=== PATIENT | female | born 1985 | race Caucasian/White ===

== ENCOUNTER 2018-09-25 14:05 | Inpatient (IN) | payer BC ==
[2018-09-25] MEDS ORDERED: Methylergonovine 0.2 MG/1 ML Amp IM PRN (14:53)
[2018-09-25] MEDS ORDERED: Butorphanol 1 MG/ML SDV IVPUSH PRN (14:53)
[2018-09-25] MEDS ORDERED: Sodium Chloride 0.9% 10 ML Syringe FLUSH PRN (14:53)
[2018-09-25] MEDS ORDERED: Lidocaine 1% 50 ML MDV INJECT PRN (14:53)
[2018-09-25] MEDS ORDERED: Carboprost Tromethamine 250 MCG/1 ML Amp IM PRN (14:53)
[2018-09-25] MEDS ORDERED: Nalbuphine 10 MG/1 ML Vial IVPUSH PRN (14:53)
[2018-09-25] MEDS ORDERED: Tranexamic Acid 1,000 MG in Sodium Chloride 0.9% 100 ML IV PRN (14:53)
[2018-09-25] MEDS ORDERED: Water For Irrigation,Sterile 1,000 ML Container IRR PRN (14:53)
[2018-09-25] MEDS ORDERED: Sodium Chloride 0.9% 2.5 ML Syringe FLUSH PRN (14:53)
[2018-09-25] MEDS ORDERED: Misoprostol 200 MCG Tab PO PRN (14:53)
[2018-09-25] MEDS ORDERED: Oxytocin/0.9 % Sodium Chloride 30 UNIT/500 ML BAG IV SCH (15:00)
[2018-09-25] MEDS ORDERED: Labetalol 100 MG Tab PO ONE (15:02)
[2018-09-25 16:19] LABS: CHLORIDE,CL 103 mmol/L (98-107); SODIUM,NA 135 mmol/L (136-145)
[2018-09-25] MEDS ORDERED: Labetalol 100 MG/20 ML MDV IVPUSH ONE ×2 (16:32→17:18)
[2018-09-25] MEDS: Lactated Ringers 1,000 ML IV SCH ×4 (16:38→22:24)
[2018-09-25] MEDS ORDERED: Lidocaine HCl/EPINEPHrine 5 ML IJ ONE (17:50)
--- NOTE | 2018-09-25 18:50 | PCM.PREANE ---
Preanesthetic Assessment - Procedure Proposed Procedure: for continuous labor epidural insertion - Anesthesia/Transfusion/Family Hx Anesthesia History: Prior Anesthesia Without Reaction (had surgery on her teeth in office. No history of GA.) Family History of Anesthesia Reaction: No Transfusion History: No Prior Transfusion(s) - Review of Systems General: No Symptoms (38+ weeks, in labor, . PPO=[id number]) Pulmonary: No Symptoms (history of asthma. Last asthma 'attack" was over 6 months ago, treated with inhaler. No recurrences. No futher inhaler use.) Cardiovascular: Other (hypertension with necessitating Rx Labetolol and baby asa daily. No signs or symptoms of abnormal bleeding or bruising.) Gastrointestinal: No Symptoms (GERD with ) Neurological: No Symptoms Other: Reports: None (active labor, 4-5 cm dilated.) - Physical Assessment NPO Status Date: 09/25/18 NPO Status Time: 13:00 (food) Pulse: 81 (eye=[id number]) O2 Sat by Pulse Oximetry: 96 Respiratory Rate: 24 (labor contractions) Blood Pressure: 161/118 Vital Signs: Last Vital Signs Temp Pulse 81 09/25/18 15:18 Resp BP 161/118 H 09/25/18 15:18 Pulse Ox Height: 1.6 m Weight: 76.204 kg ASA Class: 3E (hypertension (not yet diagnosed with pre eclampsia), requiring Labetolol for management.) Mental Status: Alert & Oriented x3 Airway Class: Mallampati = 3 ( says she snores a little, non-CORRIE) Dentition: Reports: Normal Dentition Thyro-Mental Finger Breadths: 2 Mouth Opening Finger Breadths: 3 ROM/Head Extension: Full Lungs: Clear to Auscultation, Normal Respiratory Effort Cardiovascular: Regular Rate, Regular Rhythm - Lab Values: Laboratory Last Values WBC 10.84 K/uL (4.0-11.0) 09/25/18 15:15 RBC 4.39 M/uL (4.30-5.90) 09/25/18 15:15 Hgb 12.5 g/dL (12.0-16.0) 09/25/18 15:15 Hct 36.4 % (36.0-46.0) 09/25/18 15:15 MCV 82.9 fL (80.0-98.0) 09/25/18 15:15 MCH 28.5 pg (27.0-32.0) 09/25/18 15:15 MCHC 34.3 g/dL (31.0-37.0) 09/25/18 15:15 RDW Std Deviation 41.2 fl (28.0-62.0) 09/25/18 15:15 RDW Coeff of Deb 14 % (11.0-15.0) 09/25/18 15:15 Plt Count 240 K/uL (150-400) 09/25/18 15:15 MPV 11.80 fL (7.40-12.00) 09/25/18 15:15 Nucleated RBC % 0.0 /100WBC 09/25/18 15:15 Nucleated RBCs # 0 K/uL 09/25/18 15:15 Sodium 135 mmol/L (136-145) L 09/25/18 15:15 Potassium 4.4 mmol/L (3.5-5.1) 09/25/18 15:15 Chloride 103 mmol/L (98-107) 09/25/18 15:15 Carbon Dioxide 21.2 mmol/L (21.0-32.0) 09/25/18 15:15 BUN 12 mg/dL (7.0-18.0) 09/25/18 15:15 Creatinine 0.8 mg/dL (0.6-1.0) 09/25/18 15:15 Est Cr Clr Drug Dosing 83.51 mL/min 09/25/18 15:15 Estimated GFR (MDRD) > 60.0 ml/min 09/25/18 15:15 Glucose 87 mg/dL (74-106) 09/25/18 15:15 Uric Acid 4.7 mg/dL (2.6-7.2) 09/25/18 15:15 Calcium 9.5 mg/dL (8.5-10.1) 09/25/18 15:15 Total Bilirubin 0.1 mg/dL (0.2-1.0) L 09/25/18 15:15 AST 16 IU/L (15-37) 09/25/18 15:15 ALT 20 IU/L (14-63) 09/25/18 15:15 Alkaline Phosphatase 152 U/L (46-116) H 09/25/18 15:15 Lactate Dehydrogenase 210 U/L (81-234) 09/25/18 15:15 Total Protein 7.0 g/dL (6.4-8.2) 09/25/18 15:15 Albumin 2.6 g/dL (3.4-5.0) L 09/25/18 15:15 Globulin 4.4 g/dL (2.6-4.0) H 09/25/18 15:15 Albumin/Globulin Ratio 0.6 (0.9-1.6) L 09/25/18 15:15 Urine Color YELLOW 09/25/18 14:50 Urine Appearance CLEAR 09/25/18 14:50 Urine pH 6.0 (5.0-8.0) 09/25/18 14:50 Ur Specific [place] 1.020 (1.001-1.035) 09/25/18 14:50 Urine Protein NEGATIVE mg/dL (NEGATIVE) 09/25/18 14:50 Urine Glucose (UA) NEGATIVE mg/dL (NEGATIVE) 09/25/18 14:50 Urine Ketones NEGATIVE mg/dL (NEGATIVE) 09/25/18 14:50 Urine Occult Blood NEGATIVE (NEGATIVE) 09/25/18 14:50 Urine Nitrite NEGATIVE (NEGATIVE) 09/25/18 14:50 Urine Bilirubin NEGATIVE (NEGATIVE) 09/25/18 14:50 Urine Urobilinogen 0.2 EU/dL (<2.0) 09/25/18 14:50 Ur Leukocyte Esterase NEGATIVE (NEGATIVE) 09/25/18 14:50 Blood Type A NEGATIVE 09/25/18 15:15 Antibody Screen NEGATIVE 09/25/18 15:15 - Allergies Allergies/Adverse Reactions: Allergies Allergy/AdvReac Type Severity Reaction Status Date / Time Penicillins Allergy Rash Verified 09/25/18 14:53 - Blood Blood Available: No Product(s) Available: None - Anesthesia Plan Pre-Op Medication Ordered: None - Acknowledgements Anesthesia Type Planned: Epidural (Plan: continuous labor epidural discussed with patient and . All questions answered. consent signed.) Pt an Appropriate Candidate for the Planned Anesthesia: Yes Alternatives and Risks of Anesthesia Discussed w Pt/Guardian: Yes Pt/Guardian Understands and Agrees with Anesthesia Plan: Yes PreAnesthesia Questionnaire COMMERCIAL SALES CONSULTANT History: Reports: - Past Surgical History HEENT Surgical History: Reports: Other (See Below) Other HEENT Surgeries/Procedures: [place] teeth extraction - SUBSTANCE USE Smoking Status *Q: Never Smoker Tobacco Use Within Last Twelve Months: No Recreational Drug Use History: No - CURRENT (IN HOUSE) MEDS Current Meds: Current Medications Butorphanol Tartrate (Stadol) 1 mg IVPUSH ASDIRECTED PRN PRN Reason: Pain Carboprost Tromethamine (Hemabate Ds) 250 mcg IM ASDIRECTED PRN PRN Reason: Post Hemorrhage Lactated Ringer's (Ringers, Lactated) 1,000 mls @ 150 mls/hr IV ASDIRECTED SOCRATES Last Admin: 09/25/18 17:56 Dose: 999 mls/hr Oxytocin/Sodium Chloride (Oxytocin 30 Unit/500 Ml-Ns) 30 unit in 500 mls @ 999 mls/hr IV TITRATE SOCRATES Tranexamic Acid 1,000 mg/ (Sodium Chloride) 110 mls @ 660 mls/hr IV ONETIME PRN PRN Reason: Bleeding Lidocaine HCl (Xylocaine 1%) 50 ml INJECT ONETIME PRN PRN Reason: Laceration repair Methylergonovine Maleate (Methergine) 0.2 mg IM ASDIRECTED PRN PRN Reason: Post Hemorrhage Misoprostol (Cytotec) 200 mcg PO ONETIME PRN PRN Reason: Post Hemorrhage Nalbuphine HCl (Nubain) 10 mg IVPUSH ASDIRECTED PRN PRN Reason: Pain (severe 7-10) Sodium Chloride (Saline Flush) 10 ml FLUSH ASDIRECTED PRN PRN Reason: Keep Vein Open Sodium Chloride (Saline Flush) 2.5 ml FLUSH ASDIRECTED PRN PRN Reason: Keep Vein Open Sterile Water (Sterile Water For Irrigation) 1,000 ml IRR ASDIRECTED PRN PRN Reason: delivery Discontinued Medications Fentanyl/Bupivacaine HCl (Rnjjpxbf-Ucyul-Fr 2 Mcg/Ml-0.125%) Confirm Administered Dose 100 mls @ as directed .ROUTE .STK-MED ONE Stop: 09/25/18 17:52 Labetalol HCl (Normodyne) 200 mg PO ONETIME ONE Stop: 09/25/18 15:03 Last Admin: 09/25/18 15:18 Dose: 200 mg Labetalol HCl (Normodyne) 10 mg IVPUSH ONETIME ONE; Protocol Stop: 09/25/18 16:33 Last Admin: 09/25/18 16:50 Dose: 10 mg Labetalol HCl (Normodyne) 10 mg IVPUSH ONETIME ONE; Protocol Stop: 09/25/18 17:19 Last Admin: 09/25/18 17:19 Dose: 10 mg Lidocaine/Epinephrine (Lidocaine 1.5%-Epi 1:200,000) Confirm Administered Dose 5 ml IJ .STK-MED ONE Stop: 09/25/18 17:51
--- NOTE | 2018-09-25 22:56 | PCM.SN ---
- Free Text/Narrative Note: called in by Oil Spreader Operator to stand by for vacuum-assisted vaginal delivery by Dr. Shepherd on this patient. I previously inserted a continuous labor epidural on this patient earlier this evening. Baby delivered uneventfully. My time for standby: [id number] hrs. Yonathan Martinez MD Anesthesiologist irrigation district manager
[2018-09-25] MEDS ORDERED: Acetaminophen 500 MG Tab PO PRN ×2 (23:10)
[2018-09-25] MEDS ORDERED: oxyCODONE 5 MG Tab PO PRN (23:10)
[2018-09-25] MEDS ORDERED: Ondansetron 4 MG/2 ML SDV IVPUSH PRN (23:10)
[2018-09-25] MEDS ORDERED: Ibuprofen 400 MG Tab PO PRN (23:10)
[2018-09-25] MEDS ORDERED: Docusate Sodium 100 MG Cap PO PRN (23:10)
[2018-09-25] MEDS ORDERED: Witch Hazel Medicated Pads 40/Jar TOP PRN (23:10)
[2018-09-25] MEDS ORDERED: Bisacodyl 10 MG Supp RECTAL PRN (23:10)
[2018-09-25] MEDS ORDERED: Benzocaine/Menthol 20%-0.5% Spray 78 GM Cannister TOP PRN (23:10)
[2018-09-25] MEDS ORDERED: Lanolin 100% Cream 7 GM Tube TOP PRN (23:10)
--- NOTE | 2018-09-25 23:19 | PCM.DEL ---
L & D Note - General Info Date of Service: 09/25/18 - Delivery Note Labor: Spontaneous Delivery Outcome: Livebirth Delivery Method: Spontaneous Vaginal Delivery-Single Nuchal Cord: None Anesthesia Type: Epidural Amniotic Fluid Description: Meconium Stained Laceration: 2nd Degree Suture type: Vicryl Suture size: 3-0 Placenta: Intact, Spontaneous Cord: 3 Vessels Estimated Blood Loss: 300 Provider: Addis Shepherd Score 1 min: 8 Score 5 min: 9 Vacuum Extractor Progress Note - Alternative Labor Strategies Considered Alternative Labor Strategies Considered:: Reports: Yes Strategies Considered:: Reports: Contraction Intensity Adequate, Position Changes Used to Facilitate Rotation & Descent, Empty Bladder, Rest Indications Considered:: Reports: Yes Indications:: Reports: Suspicion of Immediate or Potential Compromise - Patient Prepared Patient Prepared:: Reports: Yes Informed Consent:: Reports: Verbal Risks: Reports: Yes Risks Include:: Reports: Laceration, Shoulder Dystocia, Maternal Injury Anesthesia/Analgesia Adequate:: Reports: Yes - Probability of Success High Probability of Success:: Reports: Yes Weight Estimated:: Reports: AGA Patient Diabetic:: Reports: No Pelvis Adequate:: Reports: Yes Asynclitic:: Reports: Yes Station:: +2 - Application Time Maximum Application Time & Number of Pop-Offs Predetermined:: Reports: Yes Total Application Time (min): *max=20min: 5 Number of Times Cup Disengaged:: 0 Type of Vacuum Used:: Reports: Cup: Soft Vacuum Extraction: Successful - Exit Strategy Exit strategy available:: Reports: Yes and resuscitation teams readily available:: Reports: Yes - General Info Date of Service: 09/25/18 - Patient Data Vitals - Most Recent: Last Vital Signs Temp Pulse 81 09/25/18 18:51 Resp 24 H 09/25/18 18:51 BP 161/118 H 09/25/18 18:51 Pulse Ox 96 09/25/18 18:51 Weight - Most Recent: 76.204 kg Lab Results Last 24 Hours: Laboratory Results - last 24 hr 09/25/18 09/25/18 09/25/18 Range/Units 14:50 15:15 15:15 WBC 10.84 (4.0-11.0) K/uL RBC 4.39 (4.30-5.90) M/uL Hgb 12.5 (12.0-16.0) g/dL Hct 36.4 (36.0-46.0) % MCV 82.9 (80.0-98.0) fL MCH 28.5 (27.0-32.0) pg MCHC 34.3 (31.0-37.0) g/dL RDW Std Deviation 41.2 (28.0-62.0) fl RDW Coeff of Deb 14 (11.0-15.0) % Plt Count 240 (150-400) K/uL MPV 11.80 (7.40-12.00) fL Nucleated RBC % 0.0 /100WBC Nucleated RBCs # 0 K/uL Sodium (136-145) mmol/L Potassium (3.5-5.1) mmol/L Chloride (98-107) mmol/L Carbon Dioxide (21.0-32.0) mmol/L BUN (7.0-18.0) mg/dL Creatinine (0.6-1.0) mg/dL Est Cr Clr Drug Dosing mL/min Estimated GFR (MDRD) ml/min Glucose (74-106) mg/dL Uric Acid (2.6-7.2) mg/dL Calcium (8.5-10.1) mg/dL Total Bilirubin (0.2-1.0) mg/dL AST (15-37) IU/L ALT (14-63) IU/L Alkaline Phosphatase (46-116) U/L Lactate Dehydrogenase (81-234) U/L Total Protein (6.4-8.2) g/dL Albumin (3.4-5.0) g/dL Globulin (2.6-4.0) g/dL Albumin/Globulin Ratio (0.9-1.6) Urine Color YELLOW Urine Appearance CLEAR Urine pH 6.0 (5.0-8.0) Ur Specific [place] 1.020 (1.001-1.035) Urine Protein NEGATIVE (NEGATIVE) mg/dL Urine Glucose (UA) NEGATIVE (NEGATIVE) mg/dL Urine Ketones NEGATIVE (NEGATIVE) mg/dL Urine Occult Blood NEGATIVE (NEGATIVE) Urine Nitrite NEGATIVE (NEGATIVE) Urine Bilirubin NEGATIVE (NEGATIVE) Urine Urobilinogen 0.2 (<2.0) EU/dL Ur Leukocyte Esterase NEGATIVE (NEGATIVE) Blood Type A NEGATIVE Antibody Screen NEGATIVE 09/25/18 09/25/18 Range/Units 15:15 15:15 WBC (4.0-11.0) K/uL RBC (4.30-5.90) M/uL Hgb (12.0-16.0) g/dL Hct (36.0-46.0) % MCV (80.0-98.0) fL MCH (27.0-32.0) pg MCHC (31.0-37.0) g/dL RDW Std Deviation (28.0-62.0) fl RDW Coeff of Deb (11.0-15.0) % Plt Count (150-400) K/uL MPV (7.40-12.00) fL Nucleated RBC % /100WBC Nucleated RBCs # K/uL Sodium 135 L (136-145) mmol/L Potassium 4.4 (3.5-5.1) mmol/L Chloride 103 (98-107) mmol/L Carbon Dioxide 21.2 (21.0-32.0) mmol/L BUN 12 (7.0-18.0) mg/dL Creatinine 0.8 (0.6-1.0) mg/dL Est Cr Clr Drug Dosing 83.51 mL/min Estimated GFR (MDRD) > 60.0 ml/min Glucose 87 (74-106) mg/dL Uric Acid 4.7 (2.6-7.2) mg/dL Calcium 9.5 (8.5-10.1) mg/dL Total Bilirubin 0.1 L (0.2-1.0) mg/dL AST 16 (15-37) IU/L ALT 20 (14-63) IU/L Alkaline Phosphatase 152 H (46-116) U/L Lactate Dehydrogenase 210 (81-234) U/L Total Protein 7.0 (6.4-8.2) g/dL Albumin 2.6 L (3.4-5.0) g/dL Globulin 4.4 H (2.6-4.0) g/dL Albumin/Globulin Ratio 0.6 L (0.9-1.6) Urine Color Urine Appearance Urine pH (5.0-8.0) Ur Specific [place] (1.001-1.035) Urine Protein (NEGATIVE) mg/dL Urine Glucose (UA) (NEGATIVE) mg/dL Urine Ketones (NEGATIVE) mg/dL Urine Occult Blood (NEGATIVE) Urine Nitrite (NEGATIVE) Urine Bilirubin (NEGATIVE) Urine Urobilinogen (<2.0) EU/dL Ur Leukocyte Esterase (NEGATIVE) Blood Type Antibody Screen Med Orders - Current: Current Medications Butorphanol Tartrate (Stadol) 1 mg IVPUSH ASDIRECTED PRN PRN Reason: Pain Lactated Ringer's (Ringers, Lactated) 1,000 mls @ 150 mls/hr IV ASDIRECTED SOCRATES Last Admin: 09/25/18 18:45 Dose: 150 mls/hr Oxytocin/Sodium Chloride (Oxytocin 30 Unit/500 Ml-Ns) 30 unit in 500 mls @ 999 mls/hr IV TITRATE SOCRATES Tranexamic Acid 1,000 mg/ (Sodium Chloride) 110 mls @ 660 mls/hr IV ONETIME PRN PRN Reason: Bleeding Lidocaine HCl (Xylocaine 1%) 50 ml INJECT ONETIME PRN PRN Reason: Laceration repair Methylergonovine Maleate (Methergine) 0.2 mg IM ASDIRECTED PRN PRN Reason: Post Hemorrhage Nalbuphine HCl (Nubain) 10 mg IVPUSH ASDIRECTED PRN PRN Reason: Pain (severe 7-10) Sodium Chloride (Saline Flush) 10 ml FLUSH ASDIRECTED PRN PRN Reason: Keep Vein Open Sodium Chloride (Saline Flush) 2.5 ml FLUSH ASDIRECTED PRN PRN Reason: Keep Vein Open Sterile Water (Sterile Water For Irrigation) 1,000 ml IRR ASDIRECTED PRN PRN Reason: delivery Discontinued Medications Carboprost Tromethamine (Hemabate Ds) 250 mcg IM ASDIRECTED PRN PRN Reason: Post Hemorrhage Fentanyl/Bupivacaine HCl (Buebbcpr-Yyfhe-Qk 2 Mcg/Ml-0.125%) Confirm Administered Dose 100 mls @ as directed .ROUTE .STK-MED ONE Stop: 09/25/18 17:52 Labetalol HCl (Normodyne) 200 mg PO ONETIME ONE Stop: 09/25/18 15:03 Last Admin: 09/25/18 15:18 Dose: 200 mg Labetalol HCl (Normodyne) 10 mg IVPUSH ONETIME ONE; Protocol Stop: 09/25/18 16:33 Last Admin: 09/25/18 16:50 Dose: 10 mg Labetalol HCl (Normodyne) 10 mg IVPUSH ONETIME ONE; Protocol Stop: 09/25/18 17:19 Last Admin: 09/25/18 17:19 Dose: 10 mg Lidocaine/Epinephrine (Lidocaine 1.5%-Epi 1:200,000) Confirm Administered Dose 5 ml IJ .STK-MED ONE Stop: 09/25/18 17:51 Misoprostol (Cytotec) 200 mcg PO ONETIME PRN PRN Reason: Post Hemorrhage - Problem List & Annotations (1) Vaginal delivery SNOMED Code(s): 145954179 Code(s): O80 - ENCOUNTER FOR FULL-TERM UNCOMPLICATED DELIVERY Status: Acute Current Visit: Yes - Problem List Review Problem List Initiated/Reviewed/Updated: Yes - My Orders Last 24 Hours: My Active Orders 09/25/18 23:10 Acetaminophen [Tylenol Extra Strength] 1,000 mg PO Q4H PRN Acetaminophen [Tylenol Extra Strength] 500 mg PO Q4H PRN Benzocaine/Menthol [Dermoplast Pain Relief 20%-0.5% [place]] 78 gm TOP ASDIRECTED PRN Bisacodyl [Dulcolax] 10 mg RECTAL ONETIME PRN Docusate Sodium [Colace] 100 mg PO BID PRN Ibuprofen [Motrin] 400 mg PO Q4H PRN Ibuprofen [Motrin] 800 mg PO Q6H PRN Lanolin [Lansinoh HPA] See Dose Instructions TOP ASDIRECTED PRN Ondansetron [Zofran] 4 mg IVPUSH Q6H PRN [place] [Tucks] 1 pad TOP ASDIRECTED PRN oxyCODONE 5 mg PO Q2H PRN 09/25/18 23:11 Patient Status [ADT] Routine May Shower [RC] ASDIRECTED Up ad Christine [RC] ASDIRECTED Vital Signs [RC] PER UNIT ROUTINE Assess Lochia [WOMSER] Per Unit Routine Assess Uterine Involution [WOMSER] Per Unit Routine Peripheral IV Discontinue [OM.PC] Routine 09/25/18 23:12 BLOOD GAS ARTERIAL UMBILICAL [BG] Routine BLOOD GAS VENOUS UMBILICAL [BG] Routine Ice Therapy [OM.PC] Per Unit Routine Perineal Care [OM.PC] Per Unit Routine Sitz Bath [OM.PC] Per Unit Routine 09/26/18 05:11 HEMOGLOBIN/HEMATOCRIT,HH [HEME] Timed
[2018-09-26] MEDS: Ibuprofen 800 MG Tab PO PRN ×2 (02:57→16:15)
--- NOTE | 2018-09-26 04:21 | OR ---
SURGEON: Addis Shepherd M.D. DATE OF PROCEDURE: 09/25/2018 PREOPERATIVE DIAGNOSES: 1. A 38 and 2 week intrauterine . 2. Labor. 3. Gestational hypertension. POSTOPERATIVE DIAGNOSES: 1. A 38 and 2 week intrauterine . 2. Labor. 3. Gestational hypertension. 4. bradycardia. PROCEDURE: 1. Vacuum assisted vaginal delivery. 2. Second-degree midline laceration repaired. ANESTHESIA: Epidural. ESTIMATED BLOOD LOSS: 350 mL. COMPLICATIONS: None. FINDINGS: Viable male with scores 8 at one minute, 9 at five minutes. Weight of 7 pounds 4 ounces. Spontaneous delivery, intact placenta, 3-vessel cord. Meconium-stained fluid noted. DISPOSITION: The patient in nursery, mom in LDRP in stable condition. PROCEDURE IN DETAIL: Stephy is a 33-year-old primigravida at 38 and 2 weeks gestational age, who presented to Labor and Delivery today with contractions since 11:00 a.m. She was found to be 3 cm and progressed to 4 cm dilatation. Blood pressures are quite elevated with diastolics in the 100s. The patient was admitted. Routine labs were drawn. There was no proteinuria. PIH labs were otherwise negative. heart tones in the 140s with variability. Amniotomy was performed. Clear fluid was returned. The patient became increasingly uncomfortable and progressed to 5 cm relatively quickly. Underwent regional anesthesia in the form of epidural, became more comfortable and blood pressures stabilized nicely with this to the 120s to 130s over 70s to 80s. Initially after amniotomy and epidural, there were some variable decelerations noted. However, with positional change, oxygen supplementation, and IV fluid bolus, heart tones returned to baseline of 140s with variability. The patient began to progress more quickly thereafter. Shortly after 8:00 p.m., was found to be 9 cm and within an hour progressed to complete, began initial pushing efforts, was not pushing very effectively, and within 15 minutes of pushing, there were recurrent decelerations noted. Therefore, I was called. Upon my presentation, there were deep variables noted, they were now recovered as the patient was resting on her side at baseline within 140s with variability. With recovery, we allowed pushing efforts to again ensue. At that time, the patient was effectively pushing and was able to push to a +2 station. I had a discussion with the patient and her that if the deceleration began to recur again and become much deeper, option of proceeding with an operative vaginal delivery was discussed. They prefer this over delivery if possible. The risks of vacuum-assisted vaginal delivery was discussed with them including the risks of maternal vaginal trauma, cephalhematoma, or even intracranial bleeding. They voiced their understanding and would like to proceed in this manner if it is indicated. Therefore, the patient was continued with pushing efforts and once again with pushing efforts began having decelerations. At this time, the heart tones dropped to the 50s. The patient was repositioned to her side. She was then set up for delivery in a modified dorsal lithotomy position and was prepped and draped in the usual aseptic manner. position was once again palpated and felt to be MARK at a +2 station. Once again, discussed risks of vacuum with them and proceeding with a vacuum-assisted vaginal delivery. The patient and her would like to proceed with this manner. The OR crew was called to be in-house and on standby in case the vacuum delivery was not easily achievable. The vacuum was now gently placed after palpating the sagittal suture. With the next contraction, insufflated the vacuum to the green zone and assisted with this contraction. The vacuum was then released between contraction. With the next 3 contractions, once again the vacuum was insufflated to the green zone, at that time was able to deliver to a +4 station. The vacuum was removed and the infant's head was delivered. The shoulders did not easily deliver at this point, therefore I was able to gently reach into the axilla on either side and maneuver the shoulders with the posterior shoulder delivered followed by the anterior shoulder and remainder of the body. The infant's oropharynx and nares were bulb suctioned. Cord was clamped x2 and infant was handed off to attending nursing staff. Cord arterial, cord venous, and cord blood sampling was obtained. There was some meconium-stained fluid noted at this time. Light suprapubic pressure was applied while the placenta was delivered spontaneously intact. Vigorous fundal uterine massage was then applied while 30 units Pitocin was delivered in 500 mL of IV fluid. Upon inspection of cervix, vaginal sidewalls, and perineum, there was a deep second-degree midline laceration noted. This was repaired using 3-0 Vicryl first. The deeper layer was repaired with 3 [id number] sutures using 3-0 Vicryl, followed by repair of remainder of the laceration in the usual fashion with 3-0 Vicryl. There were 2 small periurethral lacerations noted on either side. These were repaired using 3-0 Vicryl. Hemostasis appeared evident. Sponge count and needle count were correct. The uterus remained firm. The patient remained in LDRP. Blood pressures remain normalized in the 120s over 70s. Infant is with his mother at this time with attending nurses at her side. BRUNA / FARIDEH /[id number]
--- NOTE | 2018-09-26 08:18 | PCM.PNPP ---
<Melissa Zabala - Last Filed: 09/26/18 08:12> - General Info Date of Service: 09/26/18 Functional Status: Reports: Pain Controlled, Tolerating Diet, Ambulating, Urinating - Review of Systems General: Denies: Fever, Weakness, Fatigue Pulmonary: Denies: Shortness of Breath, Pleuritic Chest Pain, Cough Cardiovascular: Denies: Chest Pain, Palpitations, Dyspnea on Exertion Gastrointestinal: Denies: Abdominal Pain Genitourinary: Denies: Dysuria - General Info Date of Service: 09/26/18 - Patient Data Vital Signs - Most Recent: Last Vital Signs Temp 36.8 C 09/26/18 07:10 Pulse 86 09/26/18 07:10 Resp 16 09/26/18 07:10 BP 130/81 09/26/18 07:10 Pulse Ox 96 09/26/18 07:10 Weight - Most Recent: 168 lb Lab Results - Last 24 Hours: Laboratory Results - last 24 hr 09/25/18 09/25/18 09/25/18 Range/Units 14:50 15:15 15:15 WBC 10.84 (4.0-11.0) K/uL RBC 4.39 (4.30-5.90) M/uL Hgb 12.5 (12.0-16.0) g/dL Hct 36.4 (36.0-46.0) % MCV 82.9 (80.0-98.0) fL MCH 28.5 (27.0-32.0) pg MCHC 34.3 (31.0-37.0) g/dL RDW Std Deviation 41.2 (28.0-62.0) fl RDW Coeff of Deb 14 (11.0-15.0) % Plt Count 240 (150-400) K/uL MPV 11.80 (7.40-12.00) fL Nucleated RBC % 0.0 /100WBC Nucleated RBCs # 0 K/uL Cord ABG pH (7.18-7.38) Cord ABG Base Excess (-10--2) Cord VBG pH (7.25-7.45) Cord VBG Base Excess (-10--2) Sodium (136-145) mmol/L Potassium (3.5-5.1) mmol/L Chloride (98-107) mmol/L Carbon Dioxide (21.0-32.0) mmol/L BUN (7.0-18.0) mg/dL Creatinine (0.6-1.0) mg/dL Est Cr Clr Drug Dosing mL/min Estimated GFR (MDRD) ml/min Glucose (74-106) mg/dL Uric Acid (2.6-7.2) mg/dL Calcium (8.5-10.1) mg/dL Total Bilirubin (0.2-1.0) mg/dL AST (15-37) IU/L ALT (14-63) IU/L Alkaline Phosphatase (46-116) U/L Lactate Dehydrogenase (81-234) U/L Total Protein (6.4-8.2) g/dL Albumin (3.4-5.0) g/dL Globulin (2.6-4.0) g/dL Albumin/Globulin Ratio (0.9-1.6) Urine Color YELLOW Urine Appearance CLEAR Urine pH 6.0 (5.0-8.0) Ur Specific Dowell 1.020 (1.001-1.035) Urine Protein NEGATIVE (NEGATIVE) mg/dL Urine Glucose (UA) NEGATIVE (NEGATIVE) mg/dL Urine Ketones NEGATIVE (NEGATIVE) mg/dL Urine Occult Blood NEGATIVE (NEGATIVE) Urine Nitrite NEGATIVE (NEGATIVE) Urine Bilirubin NEGATIVE (NEGATIVE) Urine Urobilinogen 0.2 (<2.0) EU/dL Ur Leukocyte Esterase NEGATIVE (NEGATIVE) Blood Type A NEGATIVE Antibody Screen NEGATIVE 09/25/18 09/25/18 09/25/18 Range/Units 15:15 15:15 22:41 WBC (4.0-11.0) K/uL RBC (4.30-5.90) M/uL Hgb (12.0-16.0) g/dL Hct (36.0-46.0) % MCV (80.0-98.0) fL MCH (27.0-32.0) pg MCHC (31.0-37.0) g/dL RDW Std Deviation (28.0-62.0) fl RDW Coeff of Deb (11.0-15.0) % Plt Count (150-400) K/uL MPV (7.40-12.00) fL Nucleated RBC % /100WBC Nucleated RBCs # K/uL Cord ABG pH 7.152 L (7.18-7.38) Cord ABG Base Excess -11 L (-10--2) Cord VBG pH 7.189 L (7.25-7.45) Cord VBG Base Excess -10 (-10--2) Sodium 135 L (136-145) mmol/L Potassium 4.4 (3.5-5.1) mmol/L Chloride 103 (98-107) mmol/L Carbon Dioxide 21.2 (21.0-32.0) mmol/L BUN 12 (7.0-18.0) mg/dL Creatinine 0.8 (0.6-1.0) mg/dL Est Cr Clr Drug Dosing 83.51 mL/min Estimated GFR (MDRD) > 60.0 ml/min Glucose 87 (74-106) mg/dL Uric Acid 4.7 (2.6-7.2) mg/dL Calcium 9.5 (8.5-10.1) mg/dL Total Bilirubin 0.1 L (0.2-1.0) mg/dL AST 16 (15-37) IU/L ALT 20 (14-63) IU/L Alkaline Phosphatase 152 H (46-116) U/L Lactate Dehydrogenase 210 (81-234) U/L Total Protein 7.0 (6.4-8.2) g/dL Albumin 2.6 L (3.4-5.0) g/dL Globulin 4.4 H (2.6-4.0) g/dL Albumin/Globulin Ratio 0.6 L (0.9-1.6) Urine Color Urine Appearance Urine pH (5.0-8.0) Ur Specific Dowell (1.001-1.035) Urine Protein (NEGATIVE) mg/dL Urine Glucose (UA) (NEGATIVE) mg/dL Urine Ketones (NEGATIVE) mg/dL Urine Occult Blood (NEGATIVE) Urine Nitrite (NEGATIVE) Urine Bilirubin (NEGATIVE) Urine Urobilinogen (<2.0) EU/dL Ur Leukocyte Esterase (NEGATIVE) Blood Type Antibody Screen 09/26/18 Range/Units 04:43 WBC (4.0-11.0) K/uL RBC (4.30-5.90) M/uL Hgb 11.0 L (12.0-16.0) g/dL Hct 32.0 L (36.0-46.0) % MCV (80.0-98.0) fL MCH (27.0-32.0) pg MCHC (31.0-37.0) g/dL RDW Std Deviation (28.0-62.0) fl RDW Coeff of Deb (11.0-15.0) % Plt Count (150-400) K/uL MPV (7.40-12.00) fL Nucleated RBC % /100WBC Nucleated RBCs # K/uL Cord ABG pH (7.18-7.38) Cord ABG Base Excess (-10--2) Cord VBG pH (7.25-7.45) Cord VBG Base Excess (-10--2) Sodium (136-145) mmol/L Potassium (3.5-5.1) mmol/L Chloride (98-107) mmol/L Carbon Dioxide (21.0-32.0) mmol/L BUN (7.0-18.0) mg/dL Creatinine (0.6-1.0) mg/dL Est Cr Clr Drug Dosing mL/min Estimated GFR (MDRD) ml/min Glucose (74-106) mg/dL Uric Acid (2.6-7.2) mg/dL Calcium (8.5-10.1) mg/dL Total Bilirubin (0.2-1.0) mg/dL AST (15-37) IU/L ALT (14-63) IU/L Alkaline Phosphatase (46-116) U/L Lactate Dehydrogenase (81-234) U/L Total Protein (6.4-8.2) g/dL Albumin (3.4-5.0) g/dL Globulin (2.6-4.0) g/dL Albumin/Globulin Ratio (0.9-1.6) Urine Color Urine Appearance Urine pH (5.0-8.0) Ur Specific [place]ell (1.001-1.035) Urine Protein (NEGATIVE) mg/dL Urine Glucose (UA) (NEGATIVE) mg/dL Urine Ketones (NEGATIVE) mg/dL Urine Occult Blood (NEGATIVE) Urine Nitrite (NEGATIVE) Urine Bilirubin (NEGATIVE) Urine Urobilinogen (<2.0) EU/dL Ur Leukocyte Esterase (NEGATIVE) Blood Type Antibody Screen Med Orders - Current: Current Medications Acetaminophen (Tylenol Extra Strength) 500 mg PO Q4H PRN PRN Reason: Pain Acetaminophen (Tylenol Extra Strength) 1,000 mg PO Q4H PRN PRN Reason: Pain Benzocaine/Menthol (Dermoplast Pain Relief 20%-0.5% Presto) 78 gm TOP ASDIRECTED PRN PRN Reason: Perineal Comfort Measure Bisacodyl (Dulcolax) 10 mg RECTAL ONETIME PRN PRN Reason: Constipation Butorphanol Tartrate (Stadol) 1 mg IVPUSH ASDIRECTED PRN PRN Reason: Pain Docusate Sodium (Colace) 100 mg PO BID PRN PRN Reason: Constipation Emollient Ointment (Lansinoh Hpa) 0 gm TOP ASDIRECTED PRN PRN Reason: Sore Nipples Last Admin: 09/26/18 02:58 Dose: 1 unit Lactated Ringer's (Ringers, Lactated) 1,000 mls @ 150 mls/hr IV ASDIRECTED [facility] Last Admin: 09/25/18 22:24 Dose: 150 mls/hr Oxytocin/Sodium Chloride (Oxytocin 30 Unit/500 Ml-Ns) 30 unit in 500 mls @ 999 mls/hr IV TITRATE [facility] Last Admin: 09/25/18 22:42 Dose: 999 mls/hr Tranexamic Acid 1,000 mg/ (Sodium Chloride) 110 mls @ 660 mls/hr IV ONETIME PRN PRN Reason: Bleeding Ibuprofen (Motrin) 400 mg PO Q4H PRN PRN Reason: Pain Ibuprofen (Motrin) 800 mg PO Q6H PRN PRN Reason: Pain Last Admin: 09/26/18 02:57 Dose: 800 mg Lidocaine HCl (Xylocaine 1%) 50 ml INJECT ONETIME PRN PRN Reason: Laceration repair Methylergonovine Maleate (Methergine) 0.2 mg IM ASDIRECTED PRN PRN Reason: Post Hemorrhage Nalbuphine HCl (Nubain) 10 mg IVPUSH ASDIRECTED PRN PRN Reason: Pain (severe 7-10) Ondansetron HCl (Zofran) 4 mg IVPUSH Q6H PRN PRN Reason: Nausea/Vomiting Oxycodone HCl (Oxycodone) 5 mg PO Q2H PRN PRN Reason: Pain Sodium Chloride (Saline Flush) 10 ml FLUSH ASDIRECTED PRN PRN Reason: Keep Vein Open Sodium Chloride (Saline Flush) 2.5 ml FLUSH ASDIRECTED PRN PRN Reason: Keep Vein Open Sterile Water (Sterile Water For Irrigation) 1,000 ml IRR ASDIRECTED PRN PRN Reason: delivery Kimi Adlana (Tucks) 1 pad TOP ASDIRECTED PRN PRN Reason: comfort care Discontinued Medications Carboprost Tromethamine (Hemabate Ds) 250 mcg IM ASDIRECTED PRN PRN Reason: Post Hemorrhage Fentanyl/Bupivacaine HCl ([id number]-[id number] 2 Mcg/Ml-0.125%) Confirm Administered Dose 100 mls @ as directed .ROUTE .STK-MED ONE Stop: 09/25/18 17:52 Labetalol HCl (Normodyne) 200 mg PO ONETIME ONE Stop: 09/25/18 15:03 Last Admin: 09/25/18 15:18 Dose: 200 mg Labetalol HCl (Normodyne) 10 mg IVPUSH ONETIME ONE; Protocol Stop: 09/25/18 16:33 Last Admin: 09/25/18 16:50 Dose: 10 mg Labetalol HCl (Normodyne) 10 mg IVPUSH ONETIME ONE; Protocol Stop: 09/25/18 17:19 Last Admin: 09/25/18 17:19 Dose: 10 mg Lidocaine/Epinephrine (Lidocaine 1.5%-Epi 1:200,000) Confirm Administered Dose 5 ml IJ .STK-MED ONE Stop: 09/25/18 17:51 Misoprostol (Cytotec) 200 mcg PO ONETIME PRN PRN Reason: Post Hemorrhage - Interaction Infant Disposition, : in Room with Family Infant Interaction: Holding Infant Feeding: Breastfed Infant; Nursed Well Support Person: - Recovery Exam Fundal Tone: Firm Fundal Level: At Umbilicus Fundal Placement: Midline Lochia Amount: Scant Lochia Color: Rubra/Red Perineum Description: Edematous Episiotomy/Laceration: Approximated Bladder Status: Voiding - Exam Neck: Supple Lungs: Clear to Auscultation, Normal Respiratory Effort Cardiovascular: Regular Rate, Regular Rhythm GI/Abdominal Exam: Normal Bowel Sounds, Soft, Non-Tender, No Distention, No Mass Extremities: Normal Inspection, Non-Tender, Normal Capillary Refill, Pedal Edema Skin: Warm, Dry, Intact - Problem List & Annotations (1) Vacuum extractor delivery, delivered SNOMED Code(s): 868739469 Code(s): O66.5 - ATTEMPTED APPLICATION OF VACUUM EXTRACTOR AND FORCEPS Status: Acute Current Visit: Yes (2) Vaginal delivery SNOMED Code(s): 105249249 Code(s): O80 - ENCOUNTER FOR FULL-TERM UNCOMPLICATED DELIVERY Status: Acute Current Visit: Yes - Problem List Review Problem List Initiated/Reviewed/Updated: Yes - Assessment Assessment:: PPD #1 s/p vacuum assisted delivery. Blood pressures normalizing. Minimal pain and lochia. Breast feeding well. - Plan Plan:: Continue routine post cares. Anticipate discharge home tomorrow. <Judith Mayenian - Last Filed: 09/26/18 09:02> - Patient Data Vital Signs - Most Recent: Last Vital Signs Temp 36.8 C 09/26/18 07:10 Pulse 86 09/26/18 07:10 Resp 16 09/26/18 07:10 BP 130/81 09/26/18 07:10 Pulse Ox 96 09/26/18 07:10 Lab Results - Last 24 Hours: Laboratory Results - last 24 hr 09/25/18 09/25/18 09/25/18 Range/Units 14:50 15:15 15:15 WBC 10.84 (4.0-11.0) K/uL RBC 4.39 (4.30-5.90) M/uL Hgb 12.5 (12.0-16.0) g/dL Hct 36.4 (36.0-46.0) % MCV 82.9 (80.0-98.0) fL MCH 28.5 (27.0-32.0) pg MCHC 34.3 (31.0-37.0) g/dL RDW Std Deviation 41.2 (28.0-62.0) fl RDW Coeff of Deb 14 (11.0-15.0) % Plt Count 240 (150-400) K/uL MPV 11.80 (7.40-12.00) fL Nucleated RBC % 0.0 /100WBC Nucleated RBCs # 0 K/uL Cord ABG pH (7.18-7.38) Cord ABG Base Excess (-10--2) Cord VBG pH (7.25-7.45) Cord VBG Base Excess (-10--2) Sodium (136-145) mmol/L Potassium (3.5-5.1) mmol/L Chloride (98-107) mmol/L Carbon Dioxide (21.0-32.0) mmol/L BUN (7.0-18.0) mg/dL Creatinine (0.6-1.0) mg/dL Est Cr Clr Drug Dosing mL/min Estimated GFR (MDRD) ml/min Glucose (74-106) mg/dL Uric Acid (2.6-7.2) mg/dL Calcium (8.5-10.1) mg/dL Total Bilirubin (0.2-1.0) mg/dL AST (15-37) IU/L ALT (14-63) IU/L Alkaline Phosphatase (46-116) U/L Lactate Dehydrogenase (81-234) U/L Total Protein (6.4-8.2) g/dL Albumin (3.4-5.0) g/dL Globulin (2.6-4.0) g/dL Albumin/Globulin Ratio (0.9-1.6) Urine Color YELLOW Urine Appearance CLEAR Urine pH 6.0 (5.0-8.0) Ur Specific Dowell 1.020 (1.001-1.035) Urine Protein NEGATIVE (NEGATIVE) mg/dL Urine Glucose (UA) NEGATIVE (NEGATIVE) mg/dL Urine Ketones NEGATIVE (NEGATIVE) mg/dL Urine Occult Blood NEGATIVE (NEGATIVE) Urine Nitrite NEGATIVE (NEGATIVE) Urine Bilirubin NEGATIVE (NEGATIVE) Urine Urobilinogen 0.2 (<2.0) EU/dL Ur Leukocyte Esterase NEGATIVE (NEGATIVE) Blood Type A NEGATIVE Antibody Screen NEGATIVE 09/25/18 09/25/18 09/25/18 Range/Units 15:15 15:15 22:41 WBC (4.0-11.0) K/uL RBC (4.30-5.90) M/uL Hgb (12.0-16.0) g/dL Hct (36.0-46.0) % MCV (80.0-98.0) fL MCH (27.0-32.0) pg MCHC (31.0-37.0) g/dL RDW Std Deviation (28.0-62.0) fl RDW Coeff of Deb (11.0-15.0) % Plt Count (150-400) K/uL MPV (7.40-12.00) fL Nucleated RBC % /100WBC Nucleated RBCs # K/uL Cord ABG pH 7.152 L (7.18-7.38) Cord ABG Base Excess -11 L (-10--2) Cord VBG pH 7.189 L (7.25-7.45) Cord VBG Base Excess -10 (-10--2) Sodium 135 L (136-145) mmol/L Potassium 4.4 (3.5-5.1) mmol/L Chloride 103 (98-107) mmol/L Carbon Dioxide 21.2 (21.0-32.0) mmol/L BUN 12 (7.0-18.0) mg/dL Creatinine 0.8 (0.6-1.0) mg/dL Est Cr Clr Drug Dosing 83.51 mL/min Estimated GFR (MDRD) > 60.0 ml/min Glucose 87 (74-106) mg/dL Uric Acid 4.7 (2.6-7.2) mg/dL Calcium 9.5 (8.5-10.1) mg/dL Total Bilirubin 0.1 L (0.2-1.0) mg/dL AST 16 (15-37) IU/L ALT 20 (14-63) IU/L Alkaline Phosphatase 152 H (46-116) U/L Lactate Dehydrogenase 210 (81-234) U/L Total Protein 7.0 (6.4-8.2) g/dL Albumin 2.6 L (3.4-5.0) g/dL Globulin 4.4 H (2.6-4.0) g/dL Albumin/Globulin Ratio 0.6 L (0.9-1.6) Urine Color Urine Appearance Urine pH (5.0-8.0) Ur Specific Dowell (1.001-1.035) Urine Protein (NEGATIVE) mg/dL Urine Glucose (UA) (NEGATIVE) mg/dL Urine Ketones (NEGATIVE) mg/dL Urine Occult Blood (NEGATIVE) Urine Nitrite (NEGATIVE) Urine Bilirubin (NEGATIVE) Urine Urobilinogen (<2.0) EU/dL Ur Leukocyte Esterase (NEGATIVE) Blood Type Antibody Screen 09/26/18 Range/Units 04:43 WBC (4.0-11.0) K/uL RBC (4.30-5.90) M/uL Hgb 11.0 L (12.0-16.0) g/dL Hct 32.0 L (36.0-46.0) % MCV (80.0-98.0) fL MCH (27.0-32.0) pg MCHC (31.0-37.0) g/dL RDW Std Deviation (28.0-62.0) fl RDW Coeff of Deb (11.0-15.0) % Plt Count (150-400) K/uL MPV (7.40-12.00) fL Nucleated RBC % /100WBC Nucleated RBCs # K/uL Cord ABG pH (7.18-7.38) Cord ABG Base Excess (-10--2) Cord VBG pH (7.25-7.45) Cord VBG Base Excess (-10--2) Sodium (136-145) mmol/L Potassium (3.5-5.1) mmol/L Chloride (98-107) mmol/L Carbon Dioxide (21.0-32.0) mmol/L BUN (7.0-18.0) mg/dL Creatinine (0.6-1.0) mg/dL Est Cr Clr Drug Dosing mL/min Estimated GFR (MDRD) ml/min Glucose (74-106) mg/dL Uric Acid (2.6-7.2) mg/dL Calcium (8.5-10.1) mg/dL Total Bilirubin (0.2-1.0) mg/dL AST (15-37) IU/L ALT (14-63) IU/L Alkaline Phosphatase (46-116) U/L Lactate Dehydrogenase (81-234) U/L Total Protein (6.4-8.2) g/dL Albumin (3.4-5.0) g/dL Globulin (2.6-4.0) g/dL Albumin/Globulin Ratio (0.9-1.6) Urine Color Urine Appearance Urine pH (5.0-8.0) Ur Specific Dowell (1.001-1.035) Urine Protein (NEGATIVE) mg/dL Urine Glucose (UA) (NEGATIVE) mg/dL Urine Ketones (NEGATIVE) mg/dL Urine Occult Blood (NEGATIVE) Urine Nitrite (NEGATIVE) Urine Bilirubin (NEGATIVE) Urine Urobilinogen (<2.0) EU/dL Ur Leukocyte Esterase (NEGATIVE) Blood Type Antibody Screen Med Orders - Current: Current Medications Acetaminophen (Tylenol Extra Strength) 500 mg PO Q4H PRN PRN Reason: Pain Acetaminophen (Tylenol Extra Strength) 1,000 mg PO Q4H PRN PRN Reason: Pain Benzocaine/Menthol (Dermoplast Pain Relief 20%-0.5% Presto) 78 gm TOP ASDIRECTED PRN PRN Reason: Perineal Comfort Measure Bisacodyl (Dulcolax) 10 mg RECTAL ONETIME PRN PRN Reason: Constipation Butorphanol Tartrate (Stadol) 1 mg IVPUSH ASDIRECTED PRN PRN Reason: Pain Docusate Sodium (Colace) 100 mg PO BID PRN PRN Reason: Constipation Emollient Ointment (Lansinoh Hpa) 0 gm TOP ASDIRECTED PRN PRN Reason: Sore Nipples Last Admin: 09/26/18 02:58 Dose: 1 unit Lactated Ringer's (Ringers, Lactated) 1,000 mls @ 150 mls/hr IV ASDIRECTED [facility] Last Admin: 09/25/18 22:24 Dose: 150 mls/hr Oxytocin/Sodium Chloride (Oxytocin 30 Unit/500 Ml-Ns) 30 unit in 500 mls @ 999 mls/hr IV TITRATE [facility] Last Admin: 09/25/18 22:42 Dose: 999 mls/hr Tranexamic Acid 1,000 mg/ (Sodium Chloride) 110 mls @ 660 mls/hr IV ONETIME PRN PRN Reason: Bleeding Ibuprofen (Motrin) 400 mg PO Q4H PRN PRN Reason: Pain Ibuprofen (Motrin) 800 mg PO Q6H PRN PRN Reason: Pain Last Admin: 09/26/18 02:57 Dose: 800 mg Lidocaine HCl (Xylocaine 1%) 50 ml INJECT ONETIME PRN PRN Reason: Laceration repair Methylergonovine Maleate (Methergine) 0.2 mg IM ASDIRECTED PRN PRN Reason: Post Hemorrhage Nalbuphine HCl (Nubain) 10 mg IVPUSH ASDIRECTED PRN PRN Reason: Pain (severe 7-10) Ondansetron HCl (Zofran) 4 mg IVPUSH Q6H PRN PRN Reason: Nausea/Vomiting Oxycodone HCl (Oxycodone) 5 mg PO Q2H PRN PRN Reason: Pain Sodium Chloride (Saline Flush) 10 ml FLUSH ASDIRECTED PRN PRN Reason: Keep Vein Open Sodium Chloride (Saline Flush) 2.5 ml FLUSH ASDIRECTED PRN PRN Reason: Keep Vein Open Sterile Water (Sterile Water For Irrigation) 1,000 ml IRR ASDIRECTED PRN PRN Reason: delivery Witch [place] (Tucks) 1 pad TOP ASDIRECTED PRN PRN Reason: comfort care Discontinued Medications Carboprost Tromethamine (Hemabate Ds) 250 mcg IM ASDIRECTED PRN PRN Reason: Post Hemorrhage Fentanyl/Bupivacaine HCl (Gjhvdljr-Idmdh-Bm 2 Mcg/Ml-0.125%) Confirm Administered Dose 100 mls @ as directed .ROUTE .STK-MED ONE Stop: 09/25/18 17:52 Labetalol HCl (Normodyne) 200 mg PO ONETIME ONE Stop: 09/25/18 15:03 Last Admin: 09/25/18 15:18 Dose: 200 mg Labetalol HCl (Normodyne) 10 mg IVPUSH ONETIME ONE; Protocol Stop: 09/25/18 16:33 Last Admin: 09/25/18 16:50 Dose: 10 mg Labetalol HCl (Normodyne) 10 mg IVPUSH ONETIME ONE; Protocol Stop: 09/25/18 17:19 Last Admin: 09/25/18 17:19 Dose: 10 mg Lidocaine/Epinephrine (Lidocaine 1.5%-Epi 1:200,000) Confirm Administered Dose 5 ml IJ .STK-MED ONE Stop: 09/25/18 17:51 Misoprostol (Cytotec) 200 mcg PO ONETIME PRN PRN Reason: Post Hemorrhage - My Orders Last 24 Hours: My Active Orders 09/25/18 14:53 Patient Status [ADT] Routine Heart Tones [RC] CONTINUOUS Non Stress Test [RC] PER UNIT ROUTINE May Shower [RC] ASDIRECTED Notify Provider [RC] PRN Up ad Christine [RC] ASDIRECTED Vaginal Exam [RC] PRN Vital Signs [RC] PER UNIT ROUTINE Butorphanol [Stadol] 1 mg IVPUSH ASDIRECTED PRN Lidocaine 1% [Xylocaine 1%] 50 ml INJECT ONETIME PRN Methylergonovine [Methergine] 0.2 mg IM ASDIRECTED PRN Nalbuphine [Nubain] 10 mg IVPUSH ASDIRECTED PRN Sodium Chloride 0.9% [Saline Flush] 10 ml FLUSH ASDIRECTED PRN Sodium Chloride 0.9% [Saline Flush] 2.5 ml FLUSH ASDIRECTED PRN Tranexamic Acid [Cyklokapron] 1,000 mg Sodium Chloride 0.9% [Normal Saline] 100 ml IV ONETIME Water For Irrigation,Sterile [Sterile Water for Irrigation] 1,000 ml IRR ASDIRECTED PRN Peripheral IV Insertion Adult [OM.PC] Routine Resuscitation Status Routine 09/25/18 15:00 Lactated Ringers [Ringers, Lactated] 1,000 ml IV ASDIRECTED Oxytocin/0.9 % Sodium Chloride [Oxytocin 30 Unit/500 ML-NS] 30 unit in 500 ml IV TITRATE 09/25/18 Dinner Regular Diet [DIET] - Assessment Assessment:: Patient and evaluated, BP normotensive this am on no meds - Plan Plan:: Aim for discharge tomorrow with follow up in the clinic in 1 week for BP check.
[2018-09-26] MEDS: Labetalol 100 MG Tab PO SCH (18:11)
[2018-09-27] MEDS: Ibuprofen 800 MG Tab PO PRN ×2 (02:48→15:45)
--- NOTE | 2018-09-27 06:35 | PCM48HPAN ---
Post Anesthesia Note - EVALUATION WITHIN 48HRS OF ANESTHETIC Vital Signs in Normal Range: Yes Patient Participated in Evaluation: Yes Respiratory Function Stable: Yes Airway Patent: Yes Cardiovascular Function Stable: Yes Hydration Status Stable: Yes Pain Control Satisfactory: Yes Nausea and Vomiting Control Satisfactory: Yes Mental Status Recovered: Yes Pulse Rate: 70 Resp Rate: 16 Blood Pressure: 140/70
[2018-09-27] MEDS: Labetalol 100 MG Tab PO SCH ×4 (09:11→20:31)
--- NOTE | 2018-09-27 10:06 | PCM.PNPP ---
- General Info Date of Service: 09/27/18 Subjective Update: 33yo p1 s/p VAVD , PPD 2 , denies headache , RUQ pain and BV BP wnl , started on labetalol 100mg bid yesterday Functional Status: Reports: Pain Controlled, Tolerating Diet, Ambulating, Urinating - Review of Systems General: Reports: No Symptoms HEENT: Reports: No Symptoms Pulmonary: Reports: No Symptoms Cardiovascular: Reports: No Symptoms Gastrointestinal: Reports: No Symptoms Genitourinary: Reports: No Symptoms Musculoskeletal: Reports: No Symptoms Skin: Reports: No Symptoms Neurological: Reports: No Symptoms Psychiatric: Reports: No Symptoms - General Info Date of Service: 09/27/18 - Patient Data Vital Signs - Most Recent: Last Vital Signs Temp 36.4 C 09/27/18 05:50 Pulse 78 09/27/18 09:11 Resp 16 09/27/18 06:34 BP 136/74 09/27/18 09:11 Pulse Ox 98 09/27/18 05:50 Weight - Most Recent: 76.204 kg Med Orders - Current: Current Medications Acetaminophen (Tylenol Extra Strength) 500 mg PO Q4H PRN PRN Reason: Pain Acetaminophen (Tylenol Extra Strength) 1,000 mg PO Q4H PRN PRN Reason: Pain Benzocaine/Menthol (Dermoplast Pain Relief 20%-0.5% [place]) 78 gm TOP ASDIRECTED PRN PRN Reason: Perineal Comfort Measure Bisacodyl (Dulcolax) 10 mg RECTAL ONETIME PRN PRN Reason: Constipation Butorphanol Tartrate (Stadol) 1 mg IVPUSH ASDIRECTED PRN PRN Reason: Pain Docusate Sodium (Colace) 100 mg PO BID PRN PRN Reason: Constipation Last Admin: 09/27/18 09:10 Dose: 100 mg Emollient Ointment (Lansinoh Hpa) 0 gm TOP ASDIRECTED PRN PRN Reason: Sore Nipples Last Admin: 09/26/18 02:58 Dose: 1 unit Lactated Ringer's (Ringers, Lactated) 1,000 mls @ 150 mls/hr IV ASDIRECTED [facility] Last Admin: 09/25/18 22:24 Dose: 150 mls/hr Oxytocin/Sodium Chloride (Oxytocin 30 Unit/500 Ml-Ns) 30 unit in 500 mls @ 999 mls/hr IV TITRATE [facility] Last Admin: 09/25/18 22:42 Dose: 999 mls/hr Tranexamic Acid 1,000 mg/ (Sodium Chloride) 110 mls @ 660 mls/hr IV ONETIME PRN PRN Reason: Bleeding Ibuprofen (Motrin) 400 mg PO Q4H PRN PRN Reason: Pain Ibuprofen (Motrin) 800 mg PO Q6H PRN PRN Reason: Pain Last Admin: 09/27/18 02:48 Dose: 800 mg Labetalol HCl (Normodyne) 100 mg PO BID FOR[facility], 1928–1983 Last Admin: 09/27/18 09:11 Dose: 100 mg Lidocaine HCl (Xylocaine 1%) 50 ml INJECT ONETIME PRN PRN Reason: Laceration repair Methylergonovine Maleate (Methergine) 0.2 mg IM ASDIRECTED PRN PRN Reason: Post Hemorrhage Nalbuphine HCl (Nubain) 10 mg IVPUSH ASDIRECTED PRN PRN Reason: Pain (severe 7-10) Ondansetron HCl (Zofran) 4 mg IVPUSH Q6H PRN PRN Reason: Nausea/Vomiting Oxycodone HCl (Oxycodone) 5 mg PO Q2H PRN PRN Reason: Pain Sodium Chloride (Saline Flush) 10 ml FLUSH ASDIRECTED PRN PRN Reason: Keep Vein Open Sodium Chloride (Saline Flush) 2.5 ml FLUSH ASDIRECTED PRN PRN Reason: Keep Vein Open Sterile Water (Sterile Water For Irrigation) 1,000 ml IRR ASDIRECTED PRN PRN Reason: delivery Witch [place] (Tucks) 1 pad TOP ASDIRECTED PRN PRN Reason: comfort care Discontinued Medications Carboprost Tromethamine (Hemabate Ds) 250 mcg IM ASDIRECTED PRN PRN Reason: Post Hemorrhage Fentanyl/Bupivacaine HCl (Cptqiotu-Etcgi-Gp 2 Mcg/Ml-0.125%) Confirm Administered Dose 100 mls @ as directed .ROUTE .STK-MED ONE Stop: 09/25/18 17:52 Labetalol HCl (Normodyne) 200 mg PO ONETIME ONE Stop: 09/25/18 15:03 Last Admin: 09/25/18 15:18 Dose: 200 mg Labetalol HCl (Normodyne) 10 mg IVPUSH ONETIME ONE; Protocol Stop: 09/25/18 16:33 Last Admin: 09/25/18 16:50 Dose: 10 mg Labetalol HCl (Normodyne) 10 mg IVPUSH ONETIME ONE; Protocol Stop: 09/25/18 17:19 Last Admin: 09/25/18 17:19 Dose: 10 mg Lidocaine/Epinephrine (Lidocaine 1.5%-Epi 1:200,000) Confirm Administered Dose 5 ml IJ .STK-MED ONE Stop: 09/25/18 17:51 Misoprostol (Cytotec) 200 mcg PO ONETIME PRN PRN Reason: Post Hemorrhage - Interaction Disposition, : in Room with Family Infant Interaction: Holding Infant Feeding: Breastfed Infant; Nursed Well Support Person: - Recovery Exam Fundal Tone: Firm Fundal Level: 1 Fingerbreadths Above Umbilicus Fundal Placement: Midline Lochia Amount: Scant Lochia Color: Rubra/Red Perineum Description: Intact, Minimal Bruising/Swelling Episiotomy/Laceration: Approximated Bladder Status: Voiding - Exam General: Alert HEENT: Pupils Equal Neck: Supple Lungs: Clear to Auscultation Cardiovascular: Regular Rate, Regular Rhythm GI/Abdominal Exam: Normal Bowel Sounds Extremities: Normal Inspection Neurological: No New Focal Deficit Psy/Mental Status: Alert - Problem List & Annotations (1) Vacuum extractor delivery, delivered SNOMED Code(s): 792534176 Code(s): O66.5 - ATTEMPTED APPLICATION OF VACUUM EXTRACTOR AND [employer] Status: Acute Current Visit: Yes - Problem List Review Problem List Initiated/Reviewed/Updated: Yes - Assessment Assessment:: 33 yo P1 s/p VAVD Gestation htn vs CHTN, started on labetalol 100mg bid , no signs and symptoms of preclampsia - Plan Plan:: Discharge home BP check in 3-5 days Patient will check BP at home Informed on signs and symptoms of preclampsia ( Headache , RUQ pain BV) Pain control with OTC motrin and tylenol Continue PNV
[2018-09-27 21:52] LABS: CHLORIDE,CL 107 mmol/L (98-107); SODIUM,NA 139 mmol/L (136-145)
[2018-09-27] MEDS ORDERED: Labetalol 100 MG/20 ML MDV IVPUSH ONE (21:52)
[2018-09-27] MEDS ORDERED: LORazepam 1 MG Tab PO ONE (22:04)
--- NOTE | 2018-09-27 22:11 | PCM.SN ---
- Free Text/Narrative Note: Patient noted to have BP of 160s - 180s/90 , She denies headache , RUQ pain and Blurring of vision She states she is very anxious , that is why her BP is high. I informed patient that her BP meets the criteria for hypertension with severe features I informed her that i will need to start magnessium for seizure prophylaxis , with labetalol IV She declines Magnessium for now as she thinks this is due to anxiety. I informed her of the risk of eclampsia , stroke , , loss of cognitive and motor function if BP is uncontrolled. Imp; Severe elevated BP cannot r/o GHTN with severe features vs anxiety , patient declines magnessium for seizure prophylaxis Plan IV labetalol q 20mg stat BP every 15 mins Lorazepam 1mg stat PIH labs done - wnl
[2018-09-27] MEDS ORDERED: Labetalol 100 MG Tab PO ONE (22:40)
[2018-09-28] MEDS: Labetalol 100 MG Tab PO SCH ×3 (08:34→21:47)
[2018-09-28] MEDS ORDERED: Labetalol 100 MG Tab PO ONE (09:31)
[2018-09-28] MEDS ORDERED: Labetalol 100 MG/20 ML MDV IVPUSH ONE (10:22)
[2018-09-28] MEDS ORDERED: Sodium Chloride 0.9% 2.5 ML Syringe FLUSH PRN (10:23)
[2018-09-28] MEDS ORDERED: Calcium Gluconate 10% 1 GM/10 ML SDV IV PRN (10:23)
[2018-09-28] MEDS ORDERED: Magnesium Sulfate/Water 4 GM in Premix Bag 1 BAG IV ONE (10:23)
[2018-09-28] MEDS ORDERED: Sodium Chloride 0.9% 10 ML Syringe FLUSH PRN (10:23)
[2018-09-28] MEDS: Citalopram 20 MG Tab PO SCH (10:41)
[2018-09-28 11:06] LABS: CHLORIDE,CL 108 mmol/L (98-107); SODIUM,NA 140 mmol/L (136-145)
[2018-09-28] MEDS: Lactated Ringers 1,000 ML IV SCH (11:12)
[2018-09-28] MEDS: Magnesium Sulfate/Water 40 GM/1,000 ML BAG IV SCH (11:36)
--- NOTE | 2018-09-28 14:18 | PCM.PN ---
- General Info Date of Service: 09/28/18 Subjective Update: 33yo P1 s/p PPD3 , with GHTN with severe range BPs. Had headache yesterday now resolved Patient declined Magnessium yesterday ,because she felt its anxiety increasing her BP She was given Lorazepam for anxiety. I switched to 20mg Citalopram today. BPs today ranging from 160 - 180s / 80 - 105 , she denies headache , RUQ pain and BV I informed patient that she will need magnessium for seizure prophylaxis which she accepts today. will increase labetalol to 200mg tid , she recieved IV labetalol X 2 pushes ( 1 yesterday and 1 today) Functional Status: Reports: Pain Controlled, Tolerating Diet, Ambulating, Urinating - Review of Systems General: Reports: No Symptoms HEENT: Reports: No Symptoms Pulmonary: Reports: No Symptoms Cardiovascular: Reports: No Symptoms Gastrointestinal: Reports: No Symptoms Genitourinary: Reports: No Symptoms Musculoskeletal: Reports: No Symptoms Skin: Reports: No Symptoms Neurological: Reports: No Symptoms - Patient Data Vitals - Most Recent: Last Vital Signs Temp 37.2 C 09/28/18 08:42 Pulse 71 09/28/18 10:12 Resp 16 09/28/18 08:42 BP 178/109 H 09/28/18 10:12 Pulse Ox 96 09/28/18 08:42 Weight - Most Recent: 76.204 kg Lab Results Last 24 Hours: Laboratory Results - last 24 hr 09/27/18 09/27/18 09/28/18 Range/Units 21:26 21:26 10:38 WBC 12.04 H 12.85 H (4.0-11.0) K/uL RBC 3.73 L 4.05 L (4.30-5.90) M/uL Hgb 10.6 L 11.4 L (12.0-16.0) g/dL Hct 31.3 L 33.7 L (36.0-46.0) % MCV 83.9 83.2 (80.0-98.0) fL MCH 28.4 28.1 (27.0-32.0) pg MCHC 33.9 33.8 (31.0-37.0) g/dL RDW Std Deviation 42.2 42.1 (28.0-62.0) fl RDW Coeff of Deb 14 14 (11.0-15.0) % Plt Count 228 259 (150-400) K/uL MPV 10.50 10.70 (7.40-12.00) fL Nucleated RBC % 0.0 0.0 /100WBC Nucleated RBCs # 0 0 K/uL Sodium 139 (136-145) mmol/L Potassium 3.5 (3.5-5.1) mmol/L Chloride 107 (98-107) mmol/L Carbon Dioxide 22.7 (21.0-32.0) mmol/L BUN 9 (7.0-18.0) mg/dL Creatinine 0.8 (0.6-1.0) mg/dL Est Cr Clr Drug Dosing 83.51 mL/min Estimated GFR (MDRD) > 60.0 ml/min Glucose 130 H (74-106) mg/dL Uric Acid 4.5 (2.6-7.2) mg/dL Calcium 8.6 (8.5-10.1) mg/dL Magnesium (1.8-2.4) mg/dL Total Bilirubin 0.1 L (0.2-1.0) mg/dL AST 34 (15-37) IU/L ALT 19 (14-63) IU/L Alkaline Phosphatase 102 (46-116) U/L Total Protein 5.8 L (6.4-8.2) g/dL Albumin 2.1 L (3.4-5.0) g/dL Globulin 3.7 (2.6-4.0) g/dL Albumin/Globulin Ratio 0.6 L (0.9-1.6) 09/28/18 09/28/18 Range/Units 10:38 10:38 WBC (4.0-11.0) K/uL RBC (4.30-5.90) M/uL Hgb (12.0-16.0) g/dL Hct (36.0-46.0) % MCV (80.0-98.0) fL MCH (27.0-32.0) pg MCHC (31.0-37.0) g/dL RDW Std Deviation (28.0-62.0) fl RDW Coeff of Deb (11.0-15.0) % Plt Count (150-400) K/uL MPV (7.40-12.00) fL Nucleated RBC % /100WBC Nucleated RBCs # K/uL Sodium 140 (136-145) mmol/L Potassium 4.1 (3.5-5.1) mmol/L Chloride 108 H (98-107) mmol/L Carbon Dioxide 21.9 (21.0-32.0) mmol/L BUN 7 (7.0-18.0) mg/dL Creatinine 0.9 (0.6-1.0) mg/dL Est Cr Clr Drug Dosing 74.23 mL/min Estimated GFR (MDRD) > 60.0 ml/min Glucose 96 (74-106) mg/dL Uric Acid 4.8 (2.6-7.2) mg/dL Calcium 9.0 (8.5-10.1) mg/dL Magnesium 1.5 L (1.8-2.4) mg/dL Total Bilirubin 0.1 L (0.2-1.0) mg/dL AST 28 (15-37) IU/L ALT 24 (14-63) IU/L Alkaline Phosphatase 110 (46-116) U/L Total Protein 6.4 (6.4-8.2) g/dL Albumin 2.4 L (3.4-5.0) g/dL Globulin 4.0 (2.6-4.0) g/dL Albumin/Globulin Ratio 0.6 L (0.9-1.6) Med Orders - Current: Current Medications Acetaminophen (Tylenol Extra Strength) 500 mg PO Q4H PRN PRN Reason: Pain Acetaminophen (Tylenol Extra Strength) 1,000 mg PO Q4H PRN PRN Reason: Pain Benzocaine/Menthol (Dermoplast Pain Relief 20%-0.5% [place]) 78 gm TOP ASDIRECTED PRN PRN Reason: Perineal Comfort Measure Last Admin: 09/27/18 15:44 Dose: 1 can Bisacodyl (Dulcolax) 10 mg RECTAL ONETIME PRN PRN Reason: Constipation Butorphanol Tartrate (Stadol) 1 mg IVPUSH ASDIRECTED PRN PRN Reason: Pain Calcium Gluconate (Calcium Gluconate) 1 gm IV ASDIRECTED PRN PRN Reason: respiratory distress Citalopram Hydrobromide (Celexa) 20 mg PO DAILY SOCRATES Last Admin: 09/28/18 10:41 Dose: 20 mg Docusate Sodium (Colace) 100 mg PO BID PRN PRN Reason: Constipation Last Admin: 09/27/18 09:10 Dose: 100 mg Emollient Ointment (Lansinoh Hpa) 0 gm TOP ASDIRECTED PRN PRN Reason: Sore Nipples Last Admin: 09/26/18 02:58 Dose: 1 unit Lactated Ringer's (Ringers, Lactated) 1,000 mls @ 150 mls/hr IV ASDIRECTED SOCRATES Last Admin: 09/28/18 11:12 Dose: 5 mls/hr Oxytocin/Sodium Chloride (Oxytocin 30 Unit/500 Ml-Ns) 30 unit in 500 mls @ 999 mls/hr IV TITRATE SOCRATES Last Admin: 09/25/18 22:42 Dose: 999 mls/hr Tranexamic Acid 1,000 mg/ (Sodium Chloride) 110 mls @ 660 mls/hr IV ONETIME PRN PRN Reason: Bleeding Magnesium Sulfate (Magnesium Sulfate 40 Gm In Water 1000 Ml) 40 gm in 1,000 mls @ 50 mls/hr IV ASDIRECTED [facility]; Protocol Last Admin: 09/28/18 11:36 Dose: 2 gm/hr, 50 mls/hr Ibuprofen (Motrin) 400 mg PO Q4H PRN PRN Reason: Pain Ibuprofen (Motrin) 800 mg PO Q6H PRN PRN Reason: Pain Last Admin: 09/27/18 15:45 Dose: 800 mg Labetalol HCl (Normodyne) 200 mg PO TID [facility] Lidocaine HCl (Xylocaine 1%) 50 ml INJECT ONETIME PRN PRN Reason: Laceration repair Methylergonovine Maleate (Methergine) 0.2 mg IM ASDIRECTED PRN PRN Reason: Post Hemorrhage Nalbuphine HCl (Nubain) 10 mg IVPUSH ASDIRECTED PRN PRN Reason: Pain (severe 7-10) Ondansetron HCl (Zofran) 4 mg IVPUSH Q6H PRN PRN Reason: Nausea/Vomiting Oxycodone HCl (Oxycodone) 5 mg PO Q2H PRN PRN Reason: Pain Sodium Chloride (Saline Flush) 10 ml FLUSH ASDIRECTED PRN PRN Reason: Keep Vein Open Sodium Chloride (Saline Flush) 2.5 ml FLUSH ASDIRECTED PRN PRN Reason: Keep Vein Open Sodium Chloride (Saline Flush) 10 ml FLUSH ASDIRECTED PRN PRN Reason: Keep Vein Open Sodium Chloride (Saline Flush) 2.5 ml FLUSH ASDIRECTED PRN PRN Reason: Keep Vein Open Sterile Water (Sterile Water For Irrigation) 1,000 ml IRR ASDIRECTED PRN PRN Reason: delivery Kimi Aldana (Tucks) 1 pad TOP ASDIRECTED PRN PRN Reason: comfort care Last Admin: 09/27/18 15:44 Dose: 1 container Discontinued Medications Carboprost Tromethamine (Hemabate Ds) 250 mcg IM ASDIRECTED PRN PRN Reason: Post Hemorrhage Fentanyl/Bupivacaine HCl ([id number] 2 Mcg/Ml-0.125%) Confirm Administered Dose 100 mls @ as directed .ROUTE .STK-MED ONE Stop: 09/25/18 17:52 Last Admin: 09/27/18 11:35 Dose: Not Given Magnesium Sulfate 4 gm/ Premix 100 mls @ 300 mls/hr IV BOLUS ONE Stop: 09/28/18 10:42 Last Admin: 09/28/18 11:13 Dose: 300 mls/hr Labetalol HCl (Normodyne) 200 mg PO ONETIME ONE Stop: 09/25/18 15:03 Last Admin: 09/25/18 15:18 Dose: 200 mg Labetalol HCl (Normodyne) 10 mg IVPUSH ONETIME ONE; Protocol Stop: 09/25/18 16:33 Last Admin: 09/25/18 16:50 Dose: 10 mg Labetalol HCl (Normodyne) 10 mg IVPUSH ONETIME ONE; Protocol Stop: 09/25/18 17:19 Last Admin: 09/25/18 17:19 Dose: 10 mg Labetalol HCl (Normodyne) 100 mg PO BID SOCRATES Last Admin: 09/28/18 08:34 Dose: 100 mg Labetalol HCl (Normodyne) 20 mg IVPUSH ONETIME ONE; Protocol Stop: 09/27/18 21:53 Last Admin: 09/27/18 22:17 Dose: 20 mg Labetalol HCl (Normodyne) 100 mg PO ONETIME ONE Stop: 09/27/18 22:41 Last Admin: 09/27/18 22:56 Dose: 100 mg Labetalol HCl (Normodyne) 100 mg PO ONETIME ONE Stop: 09/28/18 09:32 Last Admin: 09/28/18 09:48 Dose: 100 mg Labetalol HCl (Normodyne) 200 mg PO BID SOCRATES Labetalol HCl (Normodyne) 20 mg IVPUSH ONETIME ONE; Protocol Stop: 09/28/18 10:23 Last Admin: 09/28/18 10:41 Dose: 20 mg Lidocaine/Epinephrine (Lidocaine 1.5%-Epi 1:200,000) Confirm Administered Dose 5 ml IJ .STK-MED ONE Stop: 09/25/18 17:51 Last Admin: 09/27/18 11:35 Dose: Not Given Lorazepam (Ativan) 1 mg PO ONETIME ONE Stop: 09/27/18 22:05 Last Admin: 09/27/18 22:17 Dose: 1 mg Misoprostol (Cytotec) 200 mcg PO ONETIME PRN PRN Reason: Post Hemorrhage - Exam General: Alert HEENT: Pupils Equal Lungs: Clear to Auscultation Cardiovascular: Regular Rate, Regular Rhythm GI/Abdominal Exam: Normal Bowel Sounds (Female) Exam: Normal External Exam Back Exam: Normal Inspection Extremities: Normal Inspection - Problem List & Annotations (1) Vacuum extractor delivery, delivered SNOMED Code(s): 313495661 Code(s): O66.5 - ATTEMPTED APPLICATION OF VACUUM EXTRACTOR AND [employer]CE[employer] Status: Acute Current Visit: Yes (2) Gestational hypertension SNOMED Code(s): 628393659, 239404772 Code(s): O13.9 - GESTATIONAL HTN W/O SIGNIFICANT PROTEINURIA, UNSP TRIMESTER Status: Acute Current Visit: Yes Qualifiers: Trimester: unspecified trimester Qualified Code(s): O13.9 - Gestational [ -induced] hypertension without significant proteinuria, unspecified trimester (3) Anxiety SNOMED Code(s): 43564226 Code(s): F41.9 - ANXIETY DISORDER, UNSPECIFIED Status: Acute Current Visit: Yes - Problem List Review Problem List Initiated/Reviewed/Updated: Yes - My Orders Last 24 Hours: My Active Orders 09/28/18 10:23 Bedrest [RC] ASDIRECTED Communication Order [RC] PRN Communication Order [RC] PRN Equipment to Bedside [RC] PRN Height and Weight [RC] DAILY Intake and Output [RC] QSHIFT Notify Provider Status Change [RC] ASDIRECTED Notify Provider [RC] PRN Oxygen Therapy [RC] PRN Calcium Gluconate 1 gm IV ASDIRECTED PRN Sodium Chloride 0.9% [Saline Flush] 10 ml FLUSH ASDIRECTED PRN Sodium Chloride 0.9% [Saline Flush] 2.5 ml FLUSH ASDIRECTED PRN Electronic Heart Tones Ext w TOCO [WOMSER] Per Unit Routine Peripheral IV Insertion Adult [OM.PC] Routine 09/28/18 10:30 Citalopram [Celexa] 20 mg PO DAILY Magnesium Sulfate/Water [Magnesium Sulfate 40 GM in Water 1000 ML] 40 gm in 1, 000 ml IV ASDIRECTED Deep Tendon Reflexes [WOMSER] Q1 09/28/18 11:30 Deep Tendon Reflexes [WOMSER] [facility] 09/28/18 12:30 Deep Tendon Reflexes [WOMSER] [facility] 09/28/18 13:30 Deep Tendon Reflexes [WOMSER] [facility] 09/28/18 14:00 Labetalol [Normodyne] 200 mg PO TID 09/28/18 14:30 Deep Tendon Reflexes [WOMSER] Q1 09/28/18 15:30 Deep Tendon Reflexes [WOMSER] [facility] 09/28/18 16:30 MAGNESIUM [CHEM] Q6H Deep Tendon Reflexes [WOMSER] [facility] 09/28/18 17:30 Deep Tendon Reflexes [WOMSER] [facility] 09/28/18 18:30 Deep Tendon Reflexes [WOMSER] [facility] 09/28/18 19:30 Deep Tendon Reflexes [WOMSER] [facility] 09/28/18 20:30 Deep Tendon Reflexes [WOMSER] [facility] 09/28/18 21:30 Deep Tendon Reflexes [WOMSER] [facility] 09/28/18 22:30 MAGNESIUM [CHEM] Q6H Deep Tendon Reflexes [WOMSER] [facility] 09/28/18 23:30 Deep Tendon Reflexes [WOMSER] [facility] 09/29/18 00:30 Deep Tendon Reflexes [WOMSER] [facility] 09/29/18 01:30 Deep Tendon Reflexes [WOMSER] [facility] 09/29/18 02:30 Deep Tendon Reflexes [WOMSER] [facility] 09/29/18 03:30 Deep Tendon Reflexes [WOMSER] Q1H 09/29/18 04:30 MAGNESIUM [CHEM] Q6H Deep Tendon Reflexes [WOMSER] Q109/29/18 05:30 Deep Tendon Reflexes [WOMSER] Q109/29/18 06:30 Deep Tendon Reflexes [WOMSER] Q1H 09/29/18 07:30 Deep Tendon Reflexes [WOMSER] H 09/29/18 08:30 Deep Tendon Reflexes [WOMSER] 09/29/18 09:30 Deep Tendon Reflexes [WOMSER] 09/29/18 10:30 MAGNESIUM [CHEM] Q6H - Assessment Assessment:: 33 yo P1 s/p VAVD Gestation htn vs CHTN, Severe range Bps . Anxiety , on Mag for seizure prophylaxis - Plan Plan:: VSS q 15 - 30mins Mangnessium for seizure prophylaxis Monitor for signs and symptoms of magnessium toxicity Pain control as need Labetalol 200mg tid Citalopram 20mg daily Mag checks q 30mins
--- NOTE | 2018-09-28 14:29 | PCM.SN ---
- Free Text/Narrative Note: Patient on Magnessium for seizure prophylaxis . she denies headache RUQ pain BV BPs; 120 - 160s/70- 90s , Mainly 120s - 130s / 70s-80s DTR 2+ U/O adequate PIH labs - wnl Plan Continue Mag for 24hrs Pain control as need PIH labs q 6 hrs Mag checks Monitor I/O Continue antihypertensive
[2018-09-28] MEDS ORDERED: Labetalol 100 MG Tab PO SCH (21:00)
[2018-09-29] MEDS: Ibuprofen 800 MG Tab PO PRN (05:54)
[2018-09-29] MEDS: Labetalol 100 MG Tab PO SCH ×3 (05:54→21:50)
[2018-09-29] MEDS: Magnesium Sulfate/Water 40 GM/1,000 ML BAG IV SCH (07:58)
--- NOTE | 2018-09-29 08:22 | PCM.PNPP ---
<Melissa Zabala - Last Filed: 09/29/18 08:17> - General Info Date of Service: 09/29/18 Functional Status: Reports: Pain Controlled, Tolerating Diet, Ambulating, Urinating - Review of Systems General: Denies: Fever, Weakness, Fatigue Pulmonary: Denies: Shortness of Breath, Pleuritic Chest Pain, Cough Cardiovascular: Denies: Chest Pain, Palpitations, Dyspnea on Exertion Gastrointestinal: Denies: Abdominal Pain Genitourinary: Denies: Dysuria - General Info Date of Service: 09/29/18 - Patient Data Vital Signs - Most Recent: Last Vital Signs Temp 36.8 C 09/29/18 04:30 Pulse 81 09/29/18 05:54 Resp 16 09/29/18 04:30 BP 139/72 09/29/18 05:54 Pulse Ox 97 09/29/18 04:30 Weight - Most Recent: 168 lb I&O - Last 24 Hours: Intake & Output 09/28/18 09/29/18 09/29/18 22:59 06:59 14:59 Intake Total 567 950 Output Total 1200 1400 Balance -633 -450 Lab Results - Last 24 Hours: Laboratory Results - last 24 hr 09/28/18 09/28/18 09/28/18 Range/Units 10:38 10:38 10:38 WBC 12.85 H (4.0-11.0) K/uL RBC 4.05 L (4.30-5.90) M/uL Hgb 11.4 L (12.0-16.0) g/dL Hct 33.7 L (36.0-46.0) % MCV 83.2 (80.0-98.0) fL MCH 28.1 (27.0-32.0) pg MCHC 33.8 (31.0-37.0) g/dL RDW Std Deviation 42.1 (28.0-62.0) fl RDW Coeff of Deb 14 (11.0-15.0) % Plt Count 259 (150-400) K/uL MPV 10.70 (7.40-12.00) fL Nucleated RBC % 0.0 /100WBC Nucleated RBCs # 0 K/uL Sodium 140 (136-145) mmol/L Potassium 4.1 (3.5-5.1) mmol/L Chloride 108 H (98-107) mmol/L Carbon Dioxide 21.9 (21.0-32.0) mmol/L BUN 7 (7.0-18.0) mg/dL Creatinine 0.9 (0.6-1.0) mg/dL Est Cr Clr Drug Dosing 74.23 mL/min Estimated GFR (MDRD) > 60.0 ml/min Glucose 96 (74-106) mg/dL Uric Acid 4.8 (2.6-7.2) mg/dL Calcium 9.0 (8.5-10.1) mg/dL Magnesium 1.5 L (1.8-2.4) mg/dL Total Bilirubin 0.1 L (0.2-1.0) mg/dL AST 28 (15-37) IU/L ALT 24 (14-63) IU/L Alkaline Phosphatase 110 (46-116) U/L Total Protein 6.4 (6.4-8.2) g/dL Albumin 2.4 L (3.4-5.0) g/dL Globulin 4.0 (2.6-4.0) g/dL Albumin/Globulin Ratio 0.6 L (0.9-1.6) Urine Color Urine Appearance Urine pH (5.0-8.0) Ur Specific [place] (1.001-1.035) Urine Protein (NEGATIVE) mg/dL Urine Glucose (UA) (NEGATIVE) mg/dL Urine Ketones (NEGATIVE) mg/dL Urine Occult Blood (NEGATIVE) Urine Nitrite (NEGATIVE) Urine Bilirubin (NEGATIVE) Urine Urobilinogen (<2.0) EU/dL Ur Leukocyte Esterase (NEGATIVE) 09/28/18 09/28/18 09/28/18 Range/Units 14:40 17:05 22:39 WBC (4.0-11.0) K/uL RBC (4.30-5.90) M/uL Hgb (12.0-16.0) g/dL Hct (36.0-46.0) % MCV (80.0-98.0) fL MCH (27.0-32.0) pg MCHC (31.0-37.0) g/dL RDW Std Deviation (28.0-62.0) fl RDW Coeff of Deb (11.0-15.0) % Plt Count (150-400) K/uL MPV (7.40-12.00) fL Nucleated RBC % /100WBC Nucleated RBCs # K/uL Sodium (136-145) mmol/L Potassium (3.5-5.1) mmol/L Chloride (98-107) mmol/L Carbon Dioxide (21.0-32.0) mmol/L BUN (7.0-18.0) mg/dL Creatinine (0.6-1.0) mg/dL Est Cr Clr Drug Dosing mL/min Estimated GFR (MDRD) ml/min Glucose (74-106) mg/dL Uric Acid (2.6-7.2) mg/dL Calcium (8.5-10.1) mg/dL Magnesium 5.3 H 6.5 H (1.8-2.4) mg/dL Total Bilirubin (0.2-1.0) mg/dL AST (15-37) IU/L ALT (14-63) IU/L Alkaline Phosphatase (46-116) U/L Total Protein (6.4-8.2) g/dL Albumin (3.4-5.0) g/dL Globulin (2.6-4.0) g/dL Albumin/Globulin Ratio (0.9-1.6) Urine Color YELLOW Urine Appearance CLEAR Urine pH 6.5 (5.0-8.0) Ur Specific [place] >= 1.030 (1.001-1.035) Urine Protein NEGATIVE (NEGATIVE) mg/dL Urine Glucose (UA) NEGATIVE (NEGATIVE) mg/dL Urine Ketones NEGATIVE (NEGATIVE) mg/dL Urine Occult Blood NEGATIVE (NEGATIVE) Urine Nitrite NEGATIVE (NEGATIVE) Urine Bilirubin NEGATIVE (NEGATIVE) Urine Urobilinogen 0.2 (<2.0) EU/dL Ur Leukocyte Esterase NEGATIVE (NEGATIVE) 09/29/18 Range/Units 04:40 WBC (4.0-11.0) K/uL RBC (4.30-5.90) M/uL Hgb (12.0-16.0) g/dL Hct (36.0-46.0) % MCV (80.0-98.0) fL MCH (27.0-32.0) pg MCHC (31.0-37.0) g/dL RDW Std Deviation (28.0-62.0) fl RDW Coeff of Deb (11.0-15.0) % Plt Count (150-400) K/uL MPV (7.40-12.00) fL Nucleated RBC % /100WBC Nucleated RBCs # K/uL Sodium (136-145) mmol/L Potassium (3.5-5.1) mmol/L Chloride (98-107) mmol/L Carbon Dioxide (21.0-32.0) mmol/L BUN (7.0-18.0) mg/dL Creatinine (0.6-1.0) mg/dL Est Cr Clr Drug Dosing mL/min Estimated GFR (MDRD) ml/min Glucose (74-106) mg/dL Uric Acid (2.6-7.2) mg/dL Calcium (8.5-10.1) mg/dL Magnesium 6.9 H (1.8-2.4) mg/dL Total Bilirubin (0.2-1.0) mg/dL AST (15-37) IU/L ALT (14-63) IU/L Alkaline Phosphatase (46-116) U/L Total Protein (6.4-8.2) g/dL Albumin (3.4-5.0) g/dL Globulin (2.6-4.0) g/dL Albumin/Globulin Ratio (0.9-1.6) Urine Color Urine Appearance Urine pH (5.0-8.0) Ur Specific [place] (1.001-1.035) Urine Protein (NEGATIVE) mg/dL Urine Glucose (UA) (NEGATIVE) mg/dL Urine Ketones (NEGATIVE) mg/dL Urine Occult Blood (NEGATIVE) Urine Nitrite (NEGATIVE) Urine Bilirubin (NEGATIVE) Urine Urobilinogen (<2.0) EU/dL Ur Leukocyte Esterase (NEGATIVE) Med Orders - Current: Current Medications Acetaminophen (Tylenol Extra Strength) 500 mg PO Q4H PRN PRN Reason: Pain Last Admin: 09/28/18 19:53 Dose: 500 mg Acetaminophen (Tylenol Extra Strength) 1,000 mg PO Q4H PRN PRN Reason: Pain Benzocaine/Menthol (Dermoplast Pain Relief 20%-0.5% [place]) 78 gm TOP ASDIRECTED PRN PRN Reason: Perineal Comfort Measure Last Admin: 09/27/18 15:44 Dose: 1 can Bisacodyl (Dulcolax) 10 mg RECTAL ONETIME PRN PRN Reason: Constipation Butorphanol Tartrate (Stadol) 1 mg IVPUSH ASDIRECTED PRN PRN Reason: Pain Calcium Gluconate (Calcium Gluconate) 1 gm IV ASDIRECTED PRN PRN Reason: respiratory distress Citalopram Hydrobromide (Celexa) 20 mg PO DAILY [facility] Last Admin: 09/28/18 10:41 Dose: 20 mg Docusate Sodium (Colace) 100 mg PO BID PRN PRN Reason: Constipation Last Admin: 09/27/18 09:10 Dose: 100 mg Emollient Ointment (Lansinoh Hpa) 0 gm TOP ASDIRECTED PRN PRN Reason: Sore Nipples Last Admin: 09/26/18 02:58 Dose: 1 unit Lactated Ringer's (Ringers, Lactated) 1,000 mls @ 150 mls/hr IV ASDIRECTED [facility] Last Admin: 09/28/18 11:12 Dose: 5 mls/hr Oxytocin/Sodium Chloride (Oxytocin 30 Unit/500 Ml-Ns) 30 unit in 500 mls @ 999 mls/hr IV TITRATE [facility] Last Admin: 09/25/18 22:42 Dose: 999 mls/hr Tranexamic Acid 1,000 mg/ (Sodium Chloride) 110 mls @ 660 mls/hr IV ONETIME PRN PRN Reason: Bleeding Magnesium Sulfate (Magnesium Sulfate 40 Gm In Water 1000 Ml) 40 gm in 1,000 mls @ 50 mls/hr IV ASDIRECTED [facility]; Protocol Last Admin: 09/29/18 07:58 Dose: 2 gm/hr, 50 mls/hr Ibuprofen (Motrin) 400 mg PO Q4H PRN PRN Reason: Pain Ibuprofen (Motrin) 800 mg PO Q6H PRN PRN Reason: Pain Last Admin: 09/29/18 05:54 Dose: 800 mg Labetalol HCl (Normodyne) 200 mg PO TID [facility] Last Admin: 09/29/18 05:54 Dose: 200 mg Lidocaine HCl (Xylocaine 1%) 50 ml INJECT ONETIME PRN PRN Reason: Laceration repair Methylergonovine Maleate (Methergine) 0.2 mg IM ASDIRECTED PRN PRN Reason: Post Hemorrhage Nalbuphine HCl (Nubain) 10 mg IVPUSH ASDIRECTED PRN PRN Reason: Pain (severe 7-10) Ondansetron HCl (Zofran) 4 mg IVPUSH Q6H PRN PRN Reason: Nausea/Vomiting Oxycodone HCl (Oxycodone) 5 mg PO Q2H PRN PRN Reason: Pain Sodium Chloride (Saline Flush) 10 ml FLUSH ASDIRECTED PRN PRN Reason: Keep Vein Open Sodium Chloride (Saline Flush) 2.5 ml FLUSH ASDIRECTED PRN PRN Reason: Keep Vein Open Sodium Chloride (Saline Flush) 10 ml FLUSH ASDIRECTED PRN PRN Reason: Keep Vein Open Sodium Chloride (Saline Flush) 2.5 ml FLUSH ASDIRECTED PRN PRN Reason: Keep Vein Open Sterile Water (Sterile Water For Irrigation) 1,000 ml IRR ASDIRECTED PRN PRN Reason: delivery Witch [place] (Tucks) 1 pad TOP ASDIRECTED PRN PRN Reason: comfort care Last Admin: 09/27/18 15:44 Dose: 1 container Discontinued Medications Carboprost Tromethamine (Hemabate Ds) 250 mcg IM ASDIRECTED PRN PRN Reason: Post Hemorrhage Fentanyl/Bupivacaine HCl (Ecfphncl-Stwuk-Ks 2 Mcg/Ml-0.125%) Confirm Administered Dose 100 mls @ as directed .ROUTE .STK-MED ONE Stop: 09/25/18 17:52 Last Admin: 09/27/18 11:35 Dose: Not Given Magnesium Sulfate 4 gm/ Premix 100 mls @ 300 mls/hr IV BOLUS ONE Stop: 09/28/18 10:42 Last Admin: 09/28/18 11:13 Dose: 300 mls/hr Labetalol HCl (Normodyne) 200 mg PO ONETIME ONE Stop: 09/25/18 15:03 Last Admin: 09/25/18 15:18 Dose: 200 mg Labetalol HCl (Normodyne) 10 mg IVPUSH ONETIME ONE; Protocol Stop: 09/25/18 16:33 Last Admin: 09/25/18 16:50 Dose: 10 mg Labetalol HCl (Normodyne) 10 mg IVPUSH ONETIME ONE; Protocol Stop: 09/25/18 17:19 Last Admin: 09/25/18 17:19 Dose: 10 mg Labetalol HCl (Normodyne) 100 mg PO BID [facility] Last Admin: 09/28/18 08:34 Dose: 100 mg Labetalol HCl (Normodyne) 20 mg IVPUSH ONETIME ONE; Protocol Stop: 09/27/18 21:53 Last Admin: 09/27/18 22:17 Dose: 20 mg Labetalol HCl (Normodyne) 100 mg PO ONETIME ONE Stop: 09/27/18 22:41 Last Admin: 09/27/18 22:56 Dose: 100 mg Labetalol HCl (Normodyne) 100 mg PO ONETIME ONE Stop: 09/28/18 09:32 Last Admin: 09/28/18 09:48 Dose: 100 mg Labetalol HCl (Normodyne) 200 mg PO BID [place] Labetalol HCl (Normodyne) 20 mg IVPUSH ONETIME ONE; Protocol Stop: 09/28/18 10:23 Last Admin: 09/28/18 10:41 Dose: 20 mg Lidocaine/Epinephrine (Lidocaine 1.5%-Epi 1:200,000) Confirm Administered Dose 5 ml IJ .STK-MED ONE Stop: 09/25/18 17:51 Last Admin: 09/27/18 11:35 Dose: Not Given Lorazepam (Ativan) 1 mg PO ONETIME ONE Stop: 09/27/18 22:05 Last Admin: 09/27/18 22:17 Dose: 1 mg Misoprostol (Cytotec) 200 mcg PO ONETIME PRN PRN Reason: Post Hemorrhage - Interaction Infant Disposition, : Banks in Room with Family Infant Interaction: Holding Infant Feeding: Breastfed ; Nursed Well Support Person: - Recovery Exam Fundal Tone: Firm Fundal Level: At Umbilicus Fundal Placement: Midline Lochia Amount: Scant Lochia Color: Rubra/Red Perineum Description: Other (see below) Other Perinuem Description: 2nd degree laceration with repair Episiotomy/Laceration: Approximated Bladder Status: Voiding - Exam General: Alert, Oriented Neck: Supple Lungs: Clear to Auscultation, Normal Respiratory Effort Cardiovascular: Regular Rate, Regular Rhythm GI/Abdominal Exam: Normal Bowel Sounds, Soft, Non-Tender, No Distention, No Mass Extremities: Normal Inspection, Non-Tender, Normal Capillary Refill, Pedal Edema (trace) Skin: Warm, Dry, Intact - Problem List & Annotations (1) Vacuum extractor delivery, delivered SNOMED Code(s): 643755388 Code(s): O66.5 - ATTEMPTED APPLICATION OF VACUUM EXTRACTOR AND FORCEPS Status: Acute Current Visit: Yes (2) Vaginal delivery SNOMED Code(s): 649750390 Code(s): O80 - ENCOUNTER FOR FULL-TERM UNCOMPLICATED DELIVERY Status: Acute Current Visit: Yes - Problem List Review Problem List Initiated/Reviewed/Updated: Yes - Assessment Assessment:: 33 yo, PPD4 s/p VAVD Gestation htn vs CHTN, Started on Mag for seizure prophylaxis. Will continue for 24 hours. BPs normalizing 120-130s/70-90s. - Plan Plan:: Will continue labetalol for 24 hours. Will continue Labetalol 200mg tid and Citalopram 20mg daily for worsening anxiety. Will continue to monitor closely. <Kami Mayen - Last Filed: 09/29/18 08:53> - Patient Data Vital Signs - Most Recent: Last Vital Signs Temp 36.8 C 09/29/18 04:30 Pulse 81 09/29/18 05:54 Resp 16 09/29/18 04:30 BP 139/72 09/29/18 05:54 Pulse Ox 97 09/29/18 04:30 I&O - Last 24 Hours: Intake & Output 09/28/18 09/29/18 09/29/18 22:59 06:59 14:59 Intake Total 567 950 Output Total 1200 1400 Balance -633 -450 Lab Results - Last 24 Hours: Laboratory Results - last 24 hr 09/28/18 09/28/18 09/28/18 Range/Units 10:38 10:38 10:38 WBC 12.85 H (4.0-11.0) K/uL RBC 4.05 L (4.30-5.90) M/uL Hgb 11.4 L (12.0-16.0) g/dL Hct 33.7 L (36.0-46.0) % MCV 83.2 (80.0-98.0) fL MCH 28.1 (27.0-32.0) pg MCHC 33.8 (31.0-37.0) g/dL RDW Std Deviation 42.1 (28.0-62.0) fl RDW Coeff of Deb 14 (11.0-15.0) % Plt Count 259 (150-400) K/uL MPV 10.70 (7.40-12.00) fL Nucleated RBC % 0.0 /100WBC Nucleated RBCs # 0 K/uL Sodium 140 (136-145) mmol/L Potassium 4.1 (3.5-5.1) mmol/L Chloride 108 H (98-107) mmol/L Carbon Dioxide 21.9 (21.0-32.0) mmol/L BUN 7 (7.0-18.0) mg/dL Creatinine 0.9 (0.6-1.0) mg/dL Est Cr Clr Drug Dosing 74.23 mL/min Estimated GFR (MDRD) > 60.0 ml/min Glucose 96 (74-106) mg/dL Uric Acid 4.8 (2.6-7.2) mg/dL Calcium 9.0 (8.5-10.1) mg/dL Magnesium 1.5 L (1.8-2.4) mg/dL Total Bilirubin 0.1 L (0.2-1.0) mg/dL AST 28 (15-37) IU/L ALT 24 (14-63) IU/L Alkaline Phosphatase 110 (46-116) U/L Total Protein 6.4 (6.4-8.2) g/dL Albumin 2.4 L (3.4-5.0) g/dL Globulin 4.0 (2.6-4.0) g/dL Albumin/Globulin Ratio 0.6 L (0.9-1.6) Urine Color Urine Appearance Urine pH (5.0-8.0) Ur Specific [place] (1.001-1.035) Urine Protein (NEGATIVE) mg/dL Urine Glucose (UA) (NEGATIVE) mg/dL Urine Ketones (NEGATIVE) mg/dL Urine Occult Blood (NEGATIVE) Urine Nitrite (NEGATIVE) Urine Bilirubin (NEGATIVE) Urine Urobilinogen (<2.0) EU/dL Ur Leukocyte Esterase (NEGATIVE) 09/28/18 09/28/18 09/28/18 Range/Units 14:40 17:05 22:39 WBC (4.0-11.0) K/uL RBC (4.30-5.90) M/uL Hgb (12.0-16.0) g/dL Hct (36.0-46.0) % MCV (80.0-98.0) fL MCH (27.0-32.0) pg MCHC (31.0-37.0) g/dL RDW Std Deviation (28.0-62.0) fl RDW Coeff of Deb (11.0-15.0) % Plt Count (150-400) K/uL MPV (7.40-12.00) fL Nucleated RBC % /100WBC Nucleated RBCs # K/uL Sodium (136-145) mmol/L Potassium (3.5-5.1) mmol/L Chloride (98-107) mmol/L Carbon Dioxide (21.0-32.0) mmol/L BUN (7.0-18.0) mg/dL Creatinine (0.6-1.0) mg/dL Est Cr Clr Drug Dosing mL/min Estimated GFR (MDRD) ml/min Glucose (74-106) mg/dL Uric Acid (2.6-7.2) mg/dL Calcium (8.5-10.1) mg/dL Magnesium 5.3 H 6.5 H (1.8-2.4) mg/dL Total Bilirubin (0.2-1.0) mg/dL AST (15-37) IU/L ALT (14-63) IU/L Alkaline Phosphatase (46-116) U/L Total Protein (6.4-8.2) g/dL Albumin (3.4-5.0) g/dL Globulin (2.6-4.0) g/dL Albumin/Globulin Ratio (0.9-1.6) Urine Color YELLOW Urine Appearance CLEAR Urine pH 6.5 (5.0-8.0) Ur Specific [place] >= 1.030 (1.001-1.035) Urine Protein NEGATIVE (NEGATIVE) mg/dL Urine Glucose (UA) NEGATIVE (NEGATIVE) mg/dL Urine Ketones NEGATIVE (NEGATIVE) mg/dL Urine Occult Blood NEGATIVE (NEGATIVE) Urine Nitrite NEGATIVE (NEGATIVE) Urine Bilirubin NEGATIVE (NEGATIVE) Urine Urobilinogen 0.2 (<2.0) EU/dL Ur Leukocyte Esterase NEGATIVE (NEGATIVE) 09/29/18 Range/Units 04:40 WBC (4.0-11.0) K/uL RBC (4.30-5.90) M/uL Hgb (12.0-16.0) g/dL Hct (36.0-46.0) % MCV (80.0-98.0) fL MCH (27.0-32.0) pg MCHC (31.0-37.0) g/dL RDW Std Deviation (28.0-62.0) fl RDW Coeff of Deb (11.0-15.0) % Plt Count (150-400) K/uL MPV (7.40-12.00) fL Nucleated RBC % /100WBC Nucleated RBCs # K/uL Sodium (136-145) mmol/L Potassium (3.5-5.1) mmol/L Chloride (98-107) mmol/L Carbon Dioxide (21.0-32.0) mmol/L BUN (7.0-18.0) mg/dL Creatinine (0.6-1.0) mg/dL Est Cr Clr Drug Dosing mL/min Estimated GFR (MDRD) ml/min Glucose (74-106) mg/dL Uric Acid (2.6-7.2) mg/dL Calcium (8.5-10.1) mg/dL Magnesium 6.9 H (1.8-2.4) mg/dL Total Bilirubin (0.2-1.0) mg/dL AST (15-37) IU/L ALT (14-63) IU/L Alkaline Phosphatase (46-116) U/L Total Protein (6.4-8.2) g/dL Albumin (3.4-5.0) g/dL Globulin (2.6-4.0) g/dL Albumin/Globulin Ratio (0.9-1.6) Urine Color Urine Appearance Urine pH (5.0-8.0) Ur Specific [place] (1.001-1.035) Urine Protein (NEGATIVE) mg/dL Urine Glucose (UA) (NEGATIVE) mg/dL Urine Ketones (NEGATIVE) mg/dL Urine Occult Blood (NEGATIVE) Urine Nitrite (NEGATIVE) Urine Bilirubin (NEGATIVE) Urine Urobilinogen (<2.0) EU/dL Ur Leukocyte Esterase (NEGATIVE) Med Orders - Current: Current Medications Acetaminophen (Tylenol Extra Strength) 500 mg PO Q4H PRN PRN Reason: Pain Last Admin: 09/28/18 19:53 Dose: 500 mg Acetaminophen (Tylenol Extra Strength) 1,000 mg PO Q4H PRN PRN Reason: Pain Benzocaine/Menthol (Dermoplast Pain Relief 20%-0.5% [place]) 78 gm TOP ASDIRECTED PRN PRN Reason: Perineal Comfort Measure Last Admin: 09/27/18 15:44 Dose: 1 can Bisacodyl (Dulcolax) 10 mg RECTAL ONETIME PRN PRN Reason: Constipation Butorphanol Tartrate (Stadol) 1 mg IVPUSH ASDIRECTED PRN PRN Reason: Pain Calcium Gluconate (Calcium Gluconate) 1 gm IV ASDIRECTED PRN PRN Reason: respiratory distress Citalopram Hydrobromide (Celexa) 20 mg PO DAILY [facility] Last Admin: 09/28/18 10:41 Dose: 20 mg Docusate Sodium (Colace) 100 mg PO BID PRN PRN Reason: Constipation Last Admin: 09/27/18 09:10 Dose: 100 mg Emollient Ointment (Lansinoh Hpa) 0 gm TOP ASDIRECTED PRN PRN Reason: Sore Nipples Last Admin: 09/26/18 02:58 Dose: 1 unit Lactated Ringer's (Ringers, Lactated) 1,000 mls @ 150 mls/hr IV ASDIRECTED [facility] Last Admin: 09/28/18 11:12 Dose: 5 mls/hr Oxytocin/Sodium Chloride (Oxytocin 30 Unit/500 Ml-Ns) 30 unit in 500 mls @ 999 mls/hr IV TITRATE [facility] Last Admin: 09/25/18 22:42 Dose: 999 mls/hr Tranexamic Acid 1,000 mg/ (Sodium Chloride) 110 mls @ 660 mls/hr IV ONETIME PRN PRN Reason: Bleeding Magnesium Sulfate (Magnesium Sulfate 40 Gm In Water 1000 Ml) 40 gm in 1,000 mls @ 50 mls/hr IV ASDIRECTED [facility]; Protocol Last Admin: 09/29/18 07:58 Dose: 2 gm/hr, 50 mls/hr Ibuprofen (Motrin) 400 mg PO Q4H PRN PRN Reason: Pain Ibuprofen (Motrin) 800 mg PO Q6H PRN PRN Reason: Pain Last Admin: 09/29/18 05:54 Dose: 800 mg Labetalol HCl (Normodyne) 200 mg PO TID [facility] Last Admin: 09/29/18 05:54 Dose: 200 mg Lidocaine HCl (Xylocaine 1%) 50 ml INJECT ONETIME PRN PRN Reason: Laceration repair Methylergonovine Maleate (Methergine) 0.2 mg IM ASDIRECTED PRN PRN Reason: Post Hemorrhage Nalbuphine HCl (Nubain) 10 mg IVPUSH ASDIRECTED PRN PRN Reason: Pain (severe 7-10) Ondansetron HCl (Zofran) 4 mg IVPUSH Q6H PRN PRN Reason: Nausea/Vomiting Oxycodone HCl (Oxycodone) 5 mg PO Q2H PRN PRN Reason: Pain Sodium Chloride (Saline Flush) 10 ml FLUSH ASDIRECTED PRN PRN Reason: Keep Vein Open Sodium Chloride (Saline Flush) 2.5 ml FLUSH ASDIRECTED PRN PRN Reason: Keep Vein Open Sodium Chloride (Saline Flush) 10 ml FLUSH ASDIRECTED PRN PRN Reason: Keep Vein Open Sodium Chloride (Saline Flush) 2.5 ml FLUSH ASDIRECTED PRN PRN Reason: Keep Vein Open Sterile Water (Sterile Water For Irrigation) 1,000 ml IRR ASDIRECTED PRN PRN Reason: delivery Witch [place] (Tucks) 1 pad TOP ASDIRECTED PRN PRN Reason: comfort care Last Admin: 09/27/18 15:44 Dose: 1 container Discontinued Medications Carboprost Tromethamine (Hemabate Ds) 250 mcg IM ASDIRECTED PRN PRN Reason: Post Hemorrhage Fentanyl/Bupivacaine HCl (Lmkbuuzd-Nczpc-Dt 2 Mcg/Ml-0.125%) Confirm Administered Dose 100 mls @ as directed .ROUTE .STK-MED ONE Stop: 09/25/18 17:52 Last Admin: 09/27/18 11:35 Dose: Not Given Magnesium Sulfate 4 gm/ Premix 100 mls @ 300 mls/hr IV BOLUS ONE Stop: 09/28/18 10:42 Last Admin: 09/28/18 11:13 Dose: 300 mls/hr Labetalol HCl (Normodyne) 200 mg PO ONETIME ONE Stop: 09/25/18 15:03 Last Admin: 09/25/18 15:18 Dose: 200 mg Labetalol HCl (Normodyne) 10 mg IVPUSH ONETIME ONE; Protocol Stop: 09/25/18 16:33 Last Admin: 09/25/18 16:50 Dose: 10 mg Labetalol HCl (Normodyne) 10 mg IVPUSH ONETIME ONE; Protocol Stop: 09/25/18 17:19 Last Admin: 09/25/18 17:19 Dose: 10 mg Labetalol HCl (Normodyne) 100 mg PO BID [facility] Last Admin: 09/28/18 08:34 Dose: 100 mg Labetalol HCl (Normodyne) 20 mg IVPUSH ONETIME ONE; Protocol Stop: 09/27/18 21:53 Last Admin: 09/27/18 22:17 Dose: 20 mg Labetalol HCl (Normodyne) 100 mg PO ONETIME ONE Stop: 09/27/18 22:41 Last Admin: 09/27/18 22:56 Dose: 100 mg Labetalol HCl (Normodyne) 100 mg PO ONETIME ONE Stop: 09/28/18 09:32 Last Admin: 09/28/18 09:48 Dose: 100 mg Labetalol HCl (Normodyne) 200 mg PO BID [facility] Labetalol HCl (Normodyne) 20 mg IVPUSH ONETIME ONE; Protocol Stop: 09/28/18 10:23 Last Admin: 09/28/18 10:41 Dose: 20 mg Lidocaine/Epinephrine (Lidocaine 1.5%-Epi 1:200,000) Confirm Administered Dose 5 ml IJ .STK-MED ONE Stop: 09/25/18 17:51 Last Admin: 09/27/18 11:35 Dose: Not Given Lorazepam (Ativan) 1 mg PO ONETIME ONE Stop: 09/27/18 22:05 Last Admin: 09/27/18 22:17 Dose: 1 mg Misoprostol (Cytotec) 200 mcg PO ONETIME PRN PRN Reason: Post Hemorrhage - Assessment Assessment:: Patient seen independently agree with above. Stop Magnesium today at 1100am today - Plan Plan:: Agree with above. Will review later today after MgSO4.
[2018-09-29] MEDS: Citalopram 20 MG Tab PO SCH (09:13)
--- NOTE | 2018-09-29 17:59 | PCM.SN ---
- Free Text/Narrative Note: Patient doing well post MgSO4. Her BP readings are stable and she denies headaches, visual disturbances or epigastric pain She is less anxious and is tolerating SSRI well. A/P: PPD#4 with [facility] complicated with severe range BP, asymptomatic for preeclampsia with negative work up s/p MgSO4. Patient BP readings are stable on Labetalol 200mg TID Continue current care Aim for discharge tomorrow
[2018-09-30] MEDS: Labetalol 100 MG Tab PO SCH (06:00)
--- NOTE | 2018-09-30 09:30 | PCM.PNPP ---
- General Info Date of Service: 09/30/18 Subjective Update: PPD#5, patient refused to have her BP checked since last night with the explanation that her PB gets elevated each time the nurses come in to check her BP But she continues to take own BP meds. Functional Status: Reports: Pain Controlled, Tolerating Diet, Ambulating, Urinating - Review of Systems General: Denies: Fever, Fatigue HEENT: Denies: Headaches Pulmonary: Denies: Shortness of Breath, Pleuritic Chest Pain Cardiovascular: Denies: Chest Pain, Palpitations, Dyspnea on Exertion Gastrointestinal: Denies: Abdominal Pain Genitourinary: Denies: Dysuria, Incontinence, Flank Pain Psychiatric: Reports: Anxiety (Symptoms are improving on SSRI). Denies: Confusion, Depression - General Info Date of Service: 09/30/18 - Patient Data Vital Signs - Most Recent: Last Vital Signs Temp 36.8 C 09/30/18 06:45 Pulse 84 09/30/18 06:45 Resp 17 09/30/18 06:45 BP 135/97 H 09/29/18 17:27 Pulse Ox 98 09/30/18 06:45 Weight - Most Recent: 168 lb Lab Results - Last 24 Hours: Laboratory Results - last 24 hr 09/29/18 Range/Units 10:42 Magnesium 7.3 H (1.8-2.4) mg/dL Med Orders - Current: Current Medications Acetaminophen (Tylenol Extra Strength) 500 mg PO Q4H PRN PRN Reason: Pain Last Admin: 09/28/18 19:53 Dose: 500 mg Acetaminophen (Tylenol Extra Strength) 1,000 mg PO Q4H PRN PRN Reason: Pain Benzocaine/Menthol (Dermoplast Pain Relief 20%-0.5% [place]) 78 gm TOP ASDIRECTED PRN PRN Reason: Perineal Comfort Measure Last Admin: 09/27/18 15:44 Dose: 1 can Bisacodyl (Dulcolax) 10 mg RECTAL ONETIME PRN PRN Reason: Constipation Butorphanol Tartrate (Stadol) 1 mg IVPUSH ASDIRECTED PRN PRN Reason: Pain Calcium Gluconate (Calcium Gluconate) 1 gm IV ASDIRECTED PRN PRN Reason: respiratory distress Citalopram Hydrobromide (Celexa) 20 mg PO DAILY SOCRATES Last Admin: 09/29/18 09:13 Dose: 20 mg Docusate Sodium (Colace) 100 mg PO BID PRN PRN Reason: Constipation Last Admin: 09/27/18 09:10 Dose: 100 mg Emollient Ointment (Lansinoh Hpa) 0 gm TOP ASDIRECTED PRN PRN Reason: Sore Nipples Last Admin: 09/26/18 02:58 Dose: 1 unit Lactated Ringer's (Ringers, Lactated) 1,000 mls @ 150 mls/hr IV ASDIRECTED [facility] Last Admin: 09/28/18 11:12 Dose: 5 mls/hr Oxytocin/Sodium Chloride (Oxytocin 30 Unit/500 Ml-Ns) 30 unit in 500 mls @ 999 mls/hr IV TITRATE [facility] Last Admin: 09/25/18 22:42 Dose: 999 mls/hr Tranexamic Acid 1,000 mg/ (Sodium Chloride) 110 mls @ 660 mls/hr IV ONETIME PRN PRN Reason: Bleeding Magnesium Sulfate (Magnesium Sulfate 40 Gm In Water 1000 Ml) 40 gm in 1,000 mls @ 50 mls/hr IV ASDIRECTED [facility]; Protocol Last Admin: 09/29/18 07:58 Dose: 2 gm/hr, 50 mls/hr Ibuprofen (Motrin) 400 mg PO Q4H PRN PRN Reason: Pain Ibuprofen (Motrin) 800 mg PO Q6H PRN PRN Reason: Pain Last Admin: 09/29/18 05:54 Dose: 800 mg Labetalol HCl (Normodyne) 200 mg PO TID [facility] Last Admin: 09/30/18 06:00 Dose: Not Given Lidocaine HCl (Xylocaine 1%) 50 ml INJECT ONETIME PRN PRN Reason: Laceration repair Methylergonovine Maleate (Methergine) 0.2 mg IM ASDIRECTED PRN PRN Reason: Post Hemorrhage Nalbuphine HCl (Nubain) 10 mg IVPUSH ASDIRECTED PRN PRN Reason: Pain (severe 7-10) Ondansetron HCl (Zofran) 4 mg IVPUSH Q6H PRN PRN Reason: Nausea/Vomiting Oxycodone HCl (Oxycodone) 5 mg PO Q2H PRN PRN Reason: Pain Sodium Chloride (Saline Flush) 10 ml FLUSH ASDIRECTED PRN PRN Reason: Keep Vein Open Sodium Chloride (Saline Flush) 2.5 ml FLUSH ASDIRECTED PRN PRN Reason: Keep Vein Open Sodium Chloride (Saline Flush) 10 ml FLUSH ASDIRECTED PRN PRN Reason: Keep Vein Open Sodium Chloride (Saline Flush) 2.5 ml FLUSH ASDIRECTED PRN PRN Reason: Keep Vein Open Sterile Water (Sterile Water For Irrigation) 1,000 ml IRR ASDIRECTED PRN PRN Reason: delivery [place] (Tucks) 1 pad TOP ASDIRECTED PRN PRN Reason: comfort care Last Admin: 09/27/18 15:44 Dose: 1 container Discontinued Medications Carboprost Tromethamine (Hemabate Ds) 250 mcg IM ASDIRECTED PRN PRN Reason: Post Hemorrhage Fentanyl/Bupivacaine HCl (Qfujhglw-Pgidl-Bg 2 Mcg/Ml-0.125%) Confirm Administered Dose 100 mls @ as directed .ROUTE .STK-MED ONE Stop: 09/25/18 17:52 Last Admin: 09/27/18 11:35 Dose: Not Given Magnesium Sulfate 4 gm/ Premix 100 mls @ 300 mls/hr IV BOLUS ONE Stop: 09/28/18 10:42 Last Admin: 09/28/18 11:13 Dose: 300 mls/hr Labetalol HCl (Normodyne) 200 mg PO ONETIME ONE Stop: 09/25/18 15:03 Last Admin: 09/25/18 15:18 Dose: 200 mg Labetalol HCl (Normodyne) 10 mg IVPUSH ONETIME ONE; Protocol Stop: 09/25/18 16:33 Last Admin: 09/25/18 16:50 Dose: 10 mg Labetalol HCl (Normodyne) 10 mg IVPUSH ONETIME ONE; Protocol Stop: 09/25/18 17:19 Last Admin: 09/25/18 17:19 Dose: 10 mg Labetalol HCl (Normodyne) 100 mg PO BID [facility] Last Admin: 09/28/18 08:34 Dose: 100 mg Labetalol HCl (Normodyne) 20 mg IVPUSH ONETIME ONE; Protocol Stop: 09/27/18 21:53 Last Admin: 09/27/18 22:17 Dose: 20 mg Labetalol HCl (Normodyne) 100 mg PO ONETIME ONE Stop: 09/27/18 22:41 Last Admin: 09/27/18 22:56 Dose: 100 mg Labetalol HCl (Normodyne) 100 mg PO ONETIME ONE Stop: 09/28/18 09:32 Last Admin: 09/28/18 09:48 Dose: 100 mg Labetalol HCl (Normodyne) 200 mg PO BID SOCRATES Labetalol HCl (Normodyne) 20 mg IVPUSH ONETIME ONE; Protocol Stop: 09/28/18 10:23 Last Admin: 09/28/18 10:41 Dose: 20 mg Lidocaine/Epinephrine (Lidocaine 1.5%-Epi 1:200,000) Confirm Administered Dose 5 ml IJ .STK-MED ONE Stop: 09/25/18 17:51 Last Admin: 09/27/18 11:35 Dose: Not Given Lorazepam (Ativan) 1 mg PO ONETIME ONE Stop: 09/27/18 22:05 Last Admin: 09/27/18 22:17 Dose: 1 mg Misoprostol (Cytotec) 200 mcg PO ONETIME PRN PRN Reason: Post Hemorrhage - Interaction Infant Disposition, : in Room with Family Infant Interaction: Holding Infant Feeding: Breastfed ; Nursed Well Support Person: - Recovery Exam Fundal Tone: Firm Fundal Level: 1 Fingerbreadths Below Umbilicus Fundal Placement: Midline Lochia Amount: Scant Lochia Color: Rubra/Red Perineum Description: Intact, Minimal Bruising/Swelling Other Perinuem Description: 2nd degree laceration Episiotomy/Laceration: Approximated Bladder Status: Voiding - Exam General: Alert, Oriented Neck: Supple Lungs: Clear to Auscultation, Normal Respiratory Effort Cardiovascular: Regular Rate, Regular Rhythm GI/Abdominal Exam: Normal Bowel Sounds Extremities: Normal Inspection, Non-Tender, No Pedal Edema Neurological: No New Focal Deficit Psy/Mental Status: Alert, Normal Affect, Normal Mood - Problem List & Annotations (1) Vaginal delivery SNOMED Code(s): 466692378 Code(s): O80 - ENCOUNTER FOR FULL-TERM UNCOMPLICATED DELIVERY Status: Acute Current Visit: Yes (2) Vacuum extractor delivery, delivered SNOMED Code(s): 739906168 Code(s): O66.5 - ATTEMPTED APPLICATION OF VACUUM EXTRACTOR AND FORCEPS Status: Acute Current Visit: Yes (3) Anxiety SNOMED Code(s): 36448661 Code(s): F41.9 - ANXIETY DISORDER, UNSPECIFIED Status: Acute Current Visit: Yes (4) Chronic hypertension affecting SNOMED Code(s): 95729792 Code(s): O10.919 - UNSP PRE-EXISTING HTN COMP , UNSP TRIMESTER Status: Acute Current Visit: Yes - Problem List Review Problem List Initiated/Reviewed/Updated: Yes - Assessment Assessment:: PPD#5 s/p VAVD. CHTN complicated by severe range BP s/p MgSo4, currently on labetalol 200mg TID - unfortunately no BP readings since last night to review as patient declined BP checks and signed a AMA to this effect. She denies S/S of preeclampsia Anxiety: Symptoms controlled on citalopram - Plan Plan:: Discussed and reviewed the consequences of uncontrolled BP. Will discharge home today Reviewed keeping a BP log at home taken twice a day. She is to continue labetalol 200mg TID. Preeclampsia precautions reviewed. We discussed referral to counselling for anxiety symptoms - which she accepted. I will arrange this and call her. Prescription for citalopram sent in to [facility] Bleeding and infection precautions reviewed Nothing in the vagina for 6 weeks Follow BP check on Saturday at [facility]
[2018-09-30] MEDS: Citalopram 20 MG Tab PO SCH (10:09)
== END 2018-09-30 12:45 | disposition home or self-care (01) | DRG 560 ==
LOC: MW.OBCHECK 14:05 → MW.OB 14:09 → MW.OBCHECK 14:53 → OBSVTOIN 22:41 → MW.OB 09-26 01:00
PROVIDERS: ADMIT Obstetrics & Gynecology; ATTEND Obstetrics & Gynecology
PROC: 10H073Z Insertion of Monitoring Electrode into Products of Conception, Via Natural or Artificial Opening (ICD-10-PCS; principal; 2018-09-25)
PROC: 6A550ZT Pheresis of Cord Blood Stem Cells, Single (ICD-10-PCS; principal; 2018-09-25)
PROC: 10D07Z6 Extraction of Products of Conception, Vacuum, Via Natural or Artificial Opening (ICD-10-PCS; principal; 2018-09-25)
PROC: 10907ZC Drainage of Amniotic Fluid, Therapeutic from Products of Conception, Via Natural or Artificial Opening (ICD-10-PCS; principal; 2018-09-25)
PROC: 00HU33Z Insertion of Infusion Device into Spinal Canal, Percutaneous Approach (ICD-10-PCS; 2018-09-25)
PROC: 3E0R3BZ Introduction of Anesthetic Agent into Spinal Canal, Percutaneous Approach (ICD-10-PCS; 2018-09-25)
DX: O10.92 Unspecified pre-existing hypertension complicating childbirth (principal); O99.344 Other mental disorders complicating childbirth; Z3A.38 38 weeks gestation of pregnancy; Z37.0 Single live birth; O13.4 Gestational [pregnancy-induced] hypertension without significant proteinuria, complicating childbirth; O77.0 Labor and delivery complicated by meconium in amniotic fluid; O76 Abnormality in fetal heart rate and rhythm complicating labor and delivery; O70.1 Second degree perineal laceration during delivery; F41.9 Anxiety disorder, unspecified; O99.52 Diseases of the respiratory system complicating childbirth; J45.909 Unspecified asthma, uncomplicated; O99.62 Diseases of the digestive system complicating childbirth; K21.9 Gastro-esophageal reflux disease without esophagitis
CPT/HCPCS: 01967; 36415; 59025; 59409; 80053; 81003; 82803; 83615; 83735; 84550; 85014; 85018; 85027; 86850; 86900; 86901; A9270-GY; J2590; J3475; J3490; J7120

== ENCOUNTER 2018-10-01 04:31 | Emergency (ER) | payer BC ==
--- NOTE | 2018-10-01 05:09 | EDM.PDOC ---
ED HPI GENERAL MEDICAL PROBLEM - General Chief Complaint: Cardiovascular Problem Stated Complaint: HIGH BP Time Seen by Provider: 10/01/18 05:08 Source of Information: Reports: Patient - History of Present Illness INITIAL COMMENTS - FREE TEXT/NARRATIVE: HISTORY AND PHYSICAL: History of present illness: Patient presents by private vehicle Recently discharged from OB floor post normal vaginal delivery she did have history of preeclampsia but did deliver without further complication, she was discharged on labetalol she was somewhat noncompliant during her stay as far as medications offered lab testing etc. She returns tonight as she states she began to feel "tingly" and did check her blood pressure is 160/110 on a home reading at approximately 3 AM , she did take 200mg of labetalol at that time :as directed which she should be taking 3 times daily noncompliant with her medication throughout the day No fever nausea vomiting chills sweats no chest pain shortness breath headache dizziness palpitation no bowel or urine symptoms Pressure is 158/95 on arrival Patient noted to of left AMA yesterday morning Review of systems: As per history of present illness and below otherwise all systems reviewed and negative. Past medical history: As per history of present illness and as reviewed below otherwise noncontributory. Surgical history: As per history of present illness and as reviewed below otherwise noncontributory. Social history: No reported history of drug or alcohol abuse. Family history: As per history of present illness and as reviewed below otherwise noncontributory. Physical exam: HEENT: Atraumatic, normocephalic, pupils reactive, negative for conjunctival pallor or scleral icterus, mucous membranes moist, throat clear, neck supple, nontender, trachea midline. Lungs: Clear to auscultation, breath sounds equal bilaterally, chest nontender. Heart: S1S2, regular, negative for clicks, rubs, or JVD. Abdomen: Soft, nondistended, nontender. Negative for masses or hepatosplenomegaly. Negative for costovertebral tenderness. Pelvis: Stable nontender. Genitourinary: Deferred. Rectal: Deferred. Extremities: Atraumatic, negative for cords or calf pain. Neurovascular unremarkable. Neuro: Awake, alert, oriented. Cranial nerves II through XII unremarkable. Cerebellum unremarkable. Motor and sensory unremarkable throughout. Exam nonfocal. Diagnostics: CBC CMP UA lipase EKG Therapeutics: normal saline Labetalol 10 mg IV 2 Strongly encouraged to take medication as directed, I did speak in detail with Dr. Mayen, patient was offered observation admission however she refused at this time, blood pressure is fairly well-controlled after the additional labetalol and she should do well if she takes her medication a did stress this, she does understand and voices her understanding that this is essential at this time. And she will follow-up with Dr. Mayen Saturday Impression: #1 medication noncompliance #2 history of pre-Eclampsia #3 Hypertension Uncontrolled secondary to above Definitive disposition and diagnosis as appropriate pending reevaluation and review of above. 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[employer]MENT History: Reports: - Past Surgical History HEENT Surgical History: Reports: Other (See Below) Other HEENT Surgeries/Procedures: [place] teeth extraction Social & Family History - Family History Family Medical History: Noncontributory Endocrine/Metabolic: Reports: Diabetes, Type I - Tobacco Use Smoking Status *Q: Never Smoker - Caffeine Use Caffeine Use: Reports: Coffee, Soda, Tea - Recreational Drug Use Recreational Drug Use: No ED ROS GENERAL - Review of Systems Review Of Systems: See Below ED EXAM, GENERAL - Physical Exam Exam: See Below Course - Vital Signs Last Recorded V/S: Last Vital Signs Temp 97.5 F 10/01/18 04:32 Pulse 72 10/01/18 06:27 Resp 16 10/01/18 06:27 BP 145/91 H 10/01/18 06:27 Pulse Ox 96 10/01/18 06:27 - Orders/Labs/Meds Orders: Active Orders 24 hr Category Date Time Status EKG 12 Lead [EKG Documentation Completion] [RC] STAT Care 10/01/18 04:42 Active EKG Documentation Completion [RC] STAT Care 10/01/18 05:09 Active Sodium Chloride 0.9% [Normal Saline] 1,000 ml Med 10/01/18 05:15 Active IV STAT Medication Orders Sodium Chloride (Normal Saline) 1,000 mls @ 125 mls/hr IV STAT [facility]CR[facility] Last Admin: 10/01/18 05:14 Dose: 125 mls/hr Labs: Laboratory Tests 10/01/18 10/01/18 10/01/18 Range/Units 05:00 05:00 05:00 WBC 9.94 (4.0-11.0) K/uL RBC 4.33 (4.30-5.90) M/uL Hgb 12.5 (12.0-16.0) g/dL Hct 36.2 (36.0-46.0) % MCV 83.6 (80.0-98.0) fL MCH 28.9 (27.0-32.0) pg MCHC 34.5 (31.0-37.0) g/dL RDW Std Deviation 41.3 (28.0-62.0) fl RDW Coeff of Deb 14 (11.0-15.0) % Plt Count 386 (150-400) K/uL MPV 9.90 (7.40-12.00) fL Neut % (Auto) 68.2 (48.0-80.0) % Lymph % (Auto) 23.2 (16.0-40.0) % [place] % (Auto) 5.7 (0.0-15.0) % Eos % (Auto) 2.5 (0.0-7.0) % Baso % (Auto) 0.4 (0.0-1.5) % Neut # (Auto) 6.8 H (1.4-5.7) K/uL Lymph # (Auto) 2.3 (0.6-2.4) K/uL [place] # (Auto) 0.6 (0.0-0.8) K/uL Eos # (Auto) 0.3 (0.0-0.7) K/uL Baso # (Auto) 0.0 (0.0-0.1) K/uL Nucleated RBC % 0.0 /100WBC Nucleated RBCs # 0 K/uL Sodium 138 (136-145) mmol/L Potassium 4.2 (3.5-5.1) mmol/L Chloride 104 (98-107) mmol/L Carbon Dioxide 20.1 L (21.0-32.0) mmol/L BUN 8 (7.0-18.0) mg/dL Creatinine 0.8 (0.6-1.0) mg/dL Est Cr Clr Drug Dosing TNP Estimated GFR (MDRD) > 60.0 ml/min Glucose 101 (74-106) mg/dL Calcium 8.8 (8.5-10.1) mg/dL Total Bilirubin 0.3 (0.2-1.0) mg/dL AST 20 (15-37) IU/L ALT 28 (14-63) IU/L Alkaline Phosphatase 109 (46-116) U/L Total Protein 7.1 (6.4-8.2) g/dL Albumin 2.7 L (3.4-5.0) g/dL Globulin 4.4 H (2.6-4.0) g/dL Albumin/Globulin Ratio 0.6 L (0.9-1.6) Urine Color YELLOW Urine Appearance CLEAR Urine pH 6.0 (5.0-8.0) Ur Specific [place] 1.010 (1.001-1.035) Urine Protein NEGATIVE (NEGATIVE) mg/dL Urine Glucose (UA) NEGATIVE (NEGATIVE) mg/dL Urine Ketones 40 H (NEGATIVE) mg/dL Urine Occult Blood TRACE-INTACT H (NEGATIVE) Urine Nitrite NEGATIVE (NEGATIVE) Urine Bilirubin NEGATIVE (NEGATIVE) Urine Urobilinogen 0.2 (<2.0) EU/dL Ur Leukocyte Esterase NEGATIVE (NEGATIVE) Urine RBC 0-2 (0-2/HPF) Urine WBC 0-1 (0-5/HPF) Ur Epithelial Cells RARE (NONE-FEW) Urine Bacteria RARE (NEGATIVE) Meds: Medications Generic Name Dose Route Start Last Admin Trade Name Freq PRN Reason Stop Dose Admin Sodium Chloride 1,000 mls @ 125 mls/hr 10/01/18 05:15 10/01/18 05:14 Normal Saline IV 125 mls/hr STAT SOCRATES Administration Discontinued Medications Generic Name Dose Route Start Last Admin Trade Name Freq PRN Reason Stop Dose Admin Labetalol HCl 10 mg 10/01/18 05:25 10/01/18 05:38 Normodyne IVPUSH 10/01/18 05:26 10 mg NOW ONE Administration Protocol Labetalol HCl 10 mg 10/01/18 06:19 10/01/18 06:23 Normodyne IVPUSH 10/01/18 06:20 10 mg NOW ONE Administration Protocol Departure - Departure Time of Disposition: 06:53 Disposition: Home, Self-Care 01 Condition: Good Clinical Impression: Chronic hypertension affecting Referrals: PCP,Unknown [Primary Care Provider] - Forms: ED Department Discharge Additional Instructions: The following information is given to patients seen in the emergency department who are being discharged to home. This information is to outline your options for follow-up care. We provide all patients seen in our emergency department with a follow-up referral. The need for follow-up, as well as the timing and circumstances, are variable depending upon the specifics of your emergency department visit. If you don't have a primary care physician on staff, we will provide you with a referral. We always advise you to contact your personal physician following an emergency department visit to inform them of the circumstance of the visit and for follow-up with them and/or the need for any referrals to a consulting specialist. The emergency department will also refer you to a specialist when appropriate. This referral assures that you have the opportunity for follow-up care with a specialist. All of these measure are taken in an effort to provide you with optimal care, which includes your follow-up. Under all circumstances we always encourage you to contact your private physician who remains a resource for coordinating your care. When calling for follow-up care, please make the office aware that this follow-up is from your recent emergency room visit. If for any reason you are refused follow-up, please contact the [facility] emergency department at and asked to speak to the emergency department charge nurse. - My Orders Last 24 Hours: My Active Orders 10/01/18 04:42 EKG 12 Lead [EKG Documentation Completion] [RC] STAT 10/01/18 05:09 EKG Documentation Completion [RC] STAT 10/01/18 05:15 Sodium Chloride 0.9% [Normal Saline] 1,000 ml IV STAT - Assessment/Plan Last 24 Hours: My Active Orders 10/01/18 04:42 EKG 12 Lead [EKG Documentation Completion] [RC] STAT 10/01/18 05:09 EKG Documentation Completion [RC] STAT 10/01/18 05:15 Sodium Chloride 0.9% [Normal Saline] 1,000 ml IV STAT
[2018-10-01] MEDS ORDERED: Sodium Chloride 0.9% 1,000 ML IV SCH (05:15)
[2018-10-01 05:21] LABS: CHLORIDE,CL 104 mmol/L (98-107); SODIUM,NA 138 mmol/L (136-145)
[2018-10-01] MEDS ORDERED: Labetalol 20 MG/4 ML Syringe IVPUSH ONE ×2 (05:25→06:19)
== END 2018-10-01 07:00 | disposition home or self-care (01) ==
LOC: MW.ED 04:31
DX: O11.5 Pre-existing hypertension with pre-eclampsia, complicating the puerperium (principal); Z91.14 Patient's other noncompliance with medication regimen; Z88.0 Allergy status to penicillin
CPT/HCPCS: 36415; 80053; 81001; 85025; 93005; 96361; 96374; 96376; 99283; J3490; J7040

== ENCOUNTER 2022-11-29 00:05 | Inpatient (IN) | payer BC ==
[2022-11-29] MEDS ORDERED: Terbutaline 1 MG/ML SDV SUBCUT PRN (00:18)
[2022-11-29] MEDS ORDERED: Misoprostol 200 MCG Tab PO PRN (00:18)
[2022-11-29] MEDS ORDERED: Methylergonovine 0.2 MG/1 ML Amp IM PRN (00:18)
[2022-11-29] MEDS ORDERED: Water For Irrigation,Sterile 1,000 ML Container IRR PRN (00:18)
[2022-11-29] MEDS ORDERED: Tranexamic Acid 1,000 MG in Sodium Chloride 0.9% 100 ML IV PRN (00:18)
[2022-11-29] MEDS ORDERED: Carboprost Tromethamine 250 MCG/1 ML Amp IM PRN (00:18)
[2022-11-29] MEDS ORDERED: Labetalol 100 MG Tab PO ONE ×2 (00:18→16:49)
[2022-11-29] MEDS ORDERED: Sodium Chloride 0.9% 10 ML Syringe FLUSH PRN (00:18)
[2022-11-29] MEDS ORDERED: Sodium Chloride 0.9% 2.5 ML Syringe FLUSH PRN (00:18)
[2022-11-29] MEDS ORDERED: Butorphanol 1 MG/ML SDV IVPUSH PRN (00:18)
[2022-11-29] MEDS ORDERED: Sodium Chloride 0.9% 20 ML SDV IV PRN (00:18)
[2022-11-29] MEDS ORDERED: Lidocaine 1% 50 ML MDV INJECT PRN (00:18)
[2022-11-29] MEDS ORDERED: Ondansetron 4 MG/2 ML SDV IVPUSH PRN (00:18)
[2022-11-29] MEDS ORDERED: Oxytocin/0.9 % Sodium Chloride 30 UNIT/500 ML BAG IV SCH (00:30)
[2022-11-29] MEDS: Lactated Ringers 1,000 ML IV SCH ×2 (00:42→04:08)
[2022-11-29] MEDS ORDERED: Misoprostol 25 MCG (1/4 of 100 MCG) Tab VAG PRN ×2 (01:00→07:00)
[2022-11-29 01:31] LABS: BLOOD UREA NITROGEN,BUN 16 mg/dL (7.0-18.0); CARBON DIOXIDE,CO2 22.8 mmol/L (21.0-32.0); CHLORIDE,CL 101 mmol/L (98-107); GLUCOSE RANDOM 110 mg/dL (74-106); POTASSIUM,K 4.5 mmol/L (3.5-5.1); SODIUM,NA 135 mmol/L (136-145)
[2022-11-29 01:36] LABS: ESTIMATED GFR 98 mL/min (>60)
[2022-11-29] MEDS ORDERED: Labetalol 100 MG/20 ML MDV IVPUSH ONE (02:48)
[2022-11-29] MEDS ORDERED: Lanolin 100% Cream 7 GM Tube TOP PRN (07:24)
[2022-11-29] MEDS ORDERED: oxyCODONE 5 MG Tab PO PRN (07:24)
[2022-11-29] MEDS ORDERED: Witch Hazel Medicated Pads 40/Jar TOP PRN (07:24)
[2022-11-29] MEDS ORDERED: Benzocaine/Menthol 20%-0.5% Spray 78 GM Cannister TOP PRN (07:24)
[2022-11-29] MEDS ORDERED: Ibuprofen 400 MG Tab PO PRN (07:24)
[2022-11-29] MEDS ORDERED: Docusate Sodium 100 MG Cap PO PRN (07:24)
[2022-11-29] MEDS ORDERED: Acetaminophen 500 MG Tab PO PRN ×2 (07:24)
[2022-11-29] MEDS ORDERED: Bisacodyl 10 MG Supp RECTAL PRN (07:24)
[2022-11-29] MEDS: Labetalol 100 MG Tab PO SCH ×2 (09:14→22:10)
[2022-11-29] MEDS: Ibuprofen 800 MG Tab PO PRN (17:00)
[2022-11-30] MEDS ORDERED: Labetalol 100 MG/20 ML MDV ONE (04:50)
[2022-11-30] MEDS ORDERED: Labetalol 100 MG/20 ML MDV IVPUSH ONE ×2 (04:52→05:27)
[2022-11-30] MEDS ORDERED: LORazepam 2 MG/ML SDV IVPUSH ONE (05:27)
[2022-11-30] MEDS: Labetalol 100 MG Tab PO SCH ×4 (10:06→22:13)
[2022-11-30] MEDS ORDERED: LORazepam 0.5 MG Tab PO PRN (18:44)
[2022-12-01] MEDS: Labetalol 100 MG Tab PO SCH (06:17)
[2022-12-01] MEDS: Ibuprofen 800 MG Tab PO PRN (08:42)
== END 2022-12-01 12:14 | disposition home or self-care (01) | DRG 560 ==
LOC: MW.OBCHECK 00:05 → MW.OB 00:06 → MW.OBCHECK 00:09 → MW.OB 00:10 → OBSVTOIN 06:40 → MW.OB 10:30
PROVIDERS: ADMIT Obstetrics & Gynecology; ATTEND Obstetrics & Gynecology
PROC: 10E0XZZ Delivery of Products of Conception, External Approach (ICD-10-PCS; principal; 2022-11-29)
PROC: 0HQ9XZZ Repair Perineum Skin, External Approach (ICD-10-PCS; 2022-11-29)
DX: O13.4 Gestational [pregnancy-induced] hypertension without significant proteinuria, complicating childbirth (principal); O99.344 Other mental disorders complicating childbirth; F41.9 Anxiety disorder, unspecified; O26.893 Other specified pregnancy related conditions, third trimester; O70.0 First degree perineal laceration during delivery; Z67.11 Type A blood, Rh negative; Z88.0 Allergy status to penicillin; Z37.0 Single live birth; Z3A.39 39 weeks gestation of pregnancy; Z79.82 Long term (current) use of aspirin
CPT/HCPCS: 36415; 59025; 59409; 80053; 84550; 85014; 85018; 85027; 86592; 86850; 86900; 86901; A9270-GY; J2001; J2060; J2590; J3490; J7120

== ENCOUNTER 2025-08-08 15:38 | Emergency (ER) | payer BC ==
[2025-08-08] MEDS: Ondansetron 4 MG/2 ML SDV IVPUSH ONE (16:27)
[2025-08-08] MEDS: Propofol 200 MG/20 ML SDV IVPUSH ONE (16:27)
== END 2025-08-08 18:17 | disposition home or self-care (01) ==
LOC: MW.ED 15:38
DX: S52.502A Unspecified fracture of the lower end of left radius, initial encounter for closed fracture (principal); I10 Essential (primary) hypertension; J45.909 Unspecified asthma, uncomplicated; Z88.0 Allergy status to penicillin; Z75.3 Unavailability and inaccessibility of health-care facilities; W00.0XXA Fall on same level due to ice and snow, initial encounter; Y93.89 Activity, other specified
CPT/HCPCS: 25605; 73100; 73110; 96361; 96374; 96375; 99283; J0665; J2270; J2405; J2704; J7030; 29125; 99152